=== PATIENT | male | born 1965 | race Caucasian/White ===

== ENCOUNTER → 2022-09-26 12:56 | Outpatient (BNVA) | payer OTHER, SELFPAY | PROVIDERS: PCP Internal Medicine Medical Oncology; Visit Provider Nurse Practitioner Family | DX: Z13.89 Encounter for screening for other disorder (principal) ==

== ENCOUNTER → 2022-10-16 08:43 | Outpatient (REF) | payer OTHER, SELFPAY | LOC: HO.SL 08:43 | PROVIDERS: PCP Internal Medicine Medical Oncology; Visit Provider Nurse Practitioner Family | DX: G47.33 Obstructive sleep apnea (adult) (pediatric) (principal); R40.0 Somnolence; R06.83 Snoring | CPT/HCPCS: 95806 ==

== ENCOUNTER 2025-06-14 10:47 | Outpatient (REF) | payer OTHER, SELFPAY ==
--- OUTSIDE RECORDS SUMMARY | 2024-06-02 04:00 | XMS_ITS ---
Author Organization Thiago Corley III, MD Address [address] [place] [address] Care Team Providers Care Wool Handler Name Role Phone Dr. Thiago Corley III Primary Care Provider [phone] Allergies Allergen (clinical drug ingredient) Drug/Non Drug Allergy documented on EMR Reaction Allergy Type Onset Date Status No Known Drug Allergy Unknown Drug Allergy Active REASON FOR VISIT annual Medications Medication SIG (Take, Route, Frequency, Duration) Notes Start Date End Date Status Sildenafil Citrate 100 MG 1 tablet as ne eded Orally Once a day 10/07/2023 Active oxyCODONE HCl 5 MG DIRECTED TAKE 1 T ABLET EVERY 4-6 HOURS NEEDED FOR PAIN Oral Active Social History Tobacco Use: Social History Observation Description Date Details (start date - stop date) Never Smoker NA - NA Sex Assigned At : Social History Observation Description Sex Assigned At Male Tobacco Use/Smoking Question Answer Notes Patient is a nonsmoker Additional Findings: Tobacco Non-User Aggressive non-smoker Encounters Encounter Location Date Provider Diagnosis Thiago Corley III, MD [address] [place] [address] [place] [address] 06/02/2024 Thiago Corley Plan Of Treatment Medication Medication Name Sig Start Date Stop Date Notes Sildenafil Citrate 100 MG 1 tablet as ne eded Orally Once a day 10/07/2023 oxyCODONE HCl 5 MG DIRECTED TAKE 1 T ABLET EVERY 4-6 HOURS NEEDED FOR PAIN Oral Next Appt Details Provider Name:Thiago Law Jory , 01/18/2026 11:00:00 AM, [address] [place] [address], [place] [address], [place], [address], Progress Notes * Truong PARKS SrDOB:[birth year] (59 yo M)Acc No.[id number]:06/02/2024 Progress Notes Patient: Truong ECHOLS Sr Provider: Robert Corley MD :1965 A ge:58 Y S ex:Male Date:06/02/2024 Address:[address] [place], [place] [id number] Subjective: * Chief Complaints: * 1 . Annual. * HPI: C OVID-19 Screening: Questions H ave you had any new onset fever, chills, cough, congestion, sore throat, shortness of breath, muscle aches? N o H ave you been exposed to the virus within the last 10 days? N o H ave you travelled internationally in the last 10 days? N o H ave you been exposed to COVID-19 in the past? N o * ROS: G eneral/Constitutional: pain o nly normal aches and pains. C hills d enies.?Fatigue a dmits. F ever d enies. E NT: Decreased hearing d enies. R espiratory: Cough d enies. C ardiovascular: Chest pain with exertion d enies. D yspnea on exertion?denies. S hortness of breath d enies. G astrointestinal: Constipation d enies. D ecreased appetite d enies.?Diarrhea d enies. H eartburn d enies. N ausea d enies. R ectal bleeding?denies. V omiting d enies. H ematology: bruising d enies. p etechiae d enies. S wollen glands n one have been noted. G enitourinary: Frequent urination d enies. M usculoskeletal: Muscle aches d enies. P ainful joints d enies. S ciatica d enies. W eakness d enies. S kin: Itching d enies. R britany d enies. S kin lesion(s)?denies. N eurologic: Difficulty speaking d enies. D izziness d enies.?Headache d enies. L ow back pain d enies. P sychiatric: Depressed mood d enies. 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 Mcdowell, ? 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 * Surgical History: l eft knee arthroscopy , repair incarcerated umbilical hernia, 08/2005. * Hospitalization/Major Diagno stic Procedure: D enies Past Hospitalization. * Family History: F ather: , COPD. M other: alive, Lymphoma, Diabetes, diagnosed with DM. C hildren: alive. S on(s): alive. D aughter(s): alive. 4 brother(s) , 2 sister(s) - healthy. 3 son(s) , 1 daughter(s) - healthy. . He has a significant family history of hereditary hemochromatosis with 2 brothers and one sister, testing positive for the disorder.his mother has a history of breast cancer. He has hemochromatosis trait. He is not aware of any other family history of mental illness or substance use disorder or addiction. * Social History: T obacco Use: T obacco Use/Smoking P atient is a n onsmoker A dditional Findings: Tobacco Non-User A ggressive non-smoker Cortez law works for the [employer]. Prior to that he worked at [employer] and [employer]. He has 4 children who are healthy and well. * Medications: T aking oxyCODONE HCl 5 MG Tablet DIRECTED TAKE 1 TABLET EVERY 4-6 HOURS NEEDED FOR PAIN Oral , Taking Sildenafil Citrate 100 MG Tablet 1 tablet as needed Orally Once a day , Medication List reviewed and reconciled with the patient * Allergies: N o Known Drug Allergy. Objective: * Vitals: * Examination: G eneral Examination: GENERAL APPEARANCE: p allen, well nourished, well developed, in no acute distress, calm and relaxed. HEAD: a traumatic, normocephalic. EYES: e edward, perrla, anicteric, conjugate. EARS: n ormal. NOSE: s eptum intact. ORAL CAVITY: n ormal, unremarkable. NECK/THYROID: n o jugular venous distention, no carotid bruit, thyroid normal. LYMPH NODES: n o enlarged lymph nodes,spleen normal. SKIN: n o suspicious lesions, anicteric. HEART: n o clicks, gallops, murmurs, or rubs, regular rhythm, S1, S2 normal, no s3, or vascular bruits. LUNGS: c lear to auscultation . BREASTS: no masses palpable bilaterally. ABDOMEN: b owel sounds normal, no ascites, no organomegaly, no mass. RECTAL EXAM: n ot examined. MUSCULOSKELETAL: e xtremities unremarkable, no clubbing, cyanosis or edema. PERIPHERAL PULSES: n ormal. NEUROLOGIC: a lert and oriented, cranial nerves 2-12 grossly intact, deep tendon reflexes 2+ symmetrical, motor strength normal upper and lower extremities, sensory exam intact. PSYCH: a lert, oriented. Assessment: Plan: * Treatment: * Images: * The named appointment provid er may or may not be the originator of this progress note, and it is not deemed complete until electronically signed by the appointment provider. Sign off status: Pending * Provider: Robert Corley MD Date: 08/02/2023 Generated for Edmond starks/Nadja/Katarinaitting on: 08/15/2024 12:34 PM EST History and Physical Notes * HPI (History of Present Illness) Category Sub-Category Detail Notes COVID-19 Screening Questions Have you had any new onset fever, chills, cough, congestion, sore throat, shortness of breath, muscle aches?: No Have you been exposed to the virus withi n the last 10 days?: No Have you travelled internationally in th e last 10 days?: No Have you been exposed to COVID-19 in the past?: No Examination Category Sub-Category Detail Notes General Examination GENERAL APPEARANCE: pleasant , well nourished, well developed, in no acute distress, calm and relaxed HEAD: atraumatic, normocep halic EYES: eomi, perrla, anicte patience, conjugate EARS: normal NOSE: septum intact NECK/THYROID: no jugular venous di stention, no carotid bruit, thyroid normal HEART: no clicks, gallops, murmurs, or rubs, regular rhythm, S1, S2 normal, no s3, or vascular bruits LUNGS: clear to auscultatio n ABDOMEN: bowel sounds normal, no ascites, no organomegaly, no mass NEUROLOGIC: alert and oriented, cranial nerves 2-12 grossly intact, deep tendon reflexes 2+ symmetrical, motor strength normal upper and lower extremities, sensory exam intact SKIN: no suspicious lesion s, anicteric PERIPHERAL PULSES: normal BREASTS: no masses palpable b ilaterally MUSCULOSKELETAL: extremities unremark able, no clubbing, cyanosis or edema LYMPH NODES: no enlarged lymph no flor,spleen normal RECTAL EXAM: not examined PSYCH: alert, oriented ORAL CAVITY: normal, unremarkable
--- OUTSIDE RECORDS SUMMARY | 2024-08-17 12:00 | XMS_ITS ---
Author Organization Thiago Corley III, MD Address [address] [address] Care Team Providers Care Building Construction Estimator Name Role Phone Dr. Thiago Corley III Primary Care Provider [phone] REASON FOR VISIT annual Social History Sex Assigned At : Social History Observation Description Sex Assigned At Male Encounters Encounter Location Date Provider Diagnosis Thiago Corley III, MD [address] [place] [address] [place] [address] 08/17/2024 Thiago Corley Plan Of Treatment Next Appt Details Provider Name:Thiago Corley , 01/18/2026 11:00:00 AM, [address] [place] [address] [address] [place], [address], Progress Notes * Truong PARKS SrDOB:[birth year] (59 yo M)Acc No.[id number]:08/17/2024 Progress Notes Patient: Lenora PAYNETruong ESCOBAR Sr Provider: Robert Corley MD :1965 A ge:58 Y S ex:Male Date:08/17/2024 Address:[address] [place] [address] [id number] Subjective: * Chief Complaints: * 1 . Annual. * Medical History: Objective: * Vitals: Assessment: Plan: * Treatment: * Images: * The named appointment provid er may or may not be the originator of this progress note, and it is not deemed complete until electronically signed by the appointment provider. Sign off status: Pending * Provider: Robert Corley MD Date: 0 08/17/2024 Generated for Edmond starks/Nadja/Tyesmitting on: 08/15/2024 12:32 PM EST
--- OUTSIDE RECORDS SUMMARY | 2024-10-31 12:00 | XMS_ITS ---
Author Organization Thiago Corley III, MD Address [address] [place] [address] Care Team Providers Care Heater Operator Name Role Phone Dr. Thiago Corley III Primary Care Provider Allergies Allergen (clinical drug ingredient) Drug/Non Drug [...] Date Provider Diagnosis Thiago Corley III, MD [address] [place] [place] [address] [place] [address] 10/31/2024 Thiago Corley Plan Of Treatment Medication Medication Name Sig Start Date Stop Date Notes Sildenafil Citrate 100 MG 1 tablet as ne eded Orally Once a day 10/07/2023 oxyCODONE HCl 5 MG DIRECTED TAKE 1 T ABLET EVERY 4-6 HOURS NEEDED FOR PAIN Oral Next Appt Details Provider Name:Thiago Sawyerne , 01/18/2026 11:00:00 AM, [address] [place] [address], [address], [place], [address], Progress Notes * Truong PARKS SrDOB:[birth year] (59 yo M)Acc No.[id number]:10/31/2024 Progress Notes Patient: Truong ECHOLS Sr Provider: Robert Corley MD :1965 A ge:58 Y S ex:Male Date:10/31/2024 Address:[address] [place], [place] [id number] Subjective: * Chief Complaints: * 1 . Annual. * HPI: C OVID-19 Screening: Questions H ave you had any new onset fever, chills, cough, congestion, sore throat, shortness of breath, muscle aches? N o * ROS: G eneral/Constitutional: pain [...] ggressive non-smoker Cortez law works for the [employer]. Prior to that he worked at [employer] and [employer]. He has 4 children who are healthy [...] Examination: G eneral Examination: GENERAL APPEARANCE: p leasant, well nourished, well developed, in no acute [...] * Provider: Robert Corley MD Date: 0 10/31/2024 Generated for Edmond starks/Nadja/Katarinaitting on: 08/15/2024 12:33 PM EST History and Physical Notes * HPI (History of Present Illness) Category Sub-Category Detail Notes COVID-19 Screening Questions Have you had any new onset fever, chills, cough, congestion, sore throat, shortness of breath, muscle aches?: No Examination Category Sub-Category Detail Notes General [...]
--- OUTSIDE RECORDS SUMMARY | 2025-01-17 05:45 | XMS_ITS ---
Author Organization Thiago Corley III, MD Address [address] [place] [address] Care Team Providers Care Material Requirements Worker Name Role Phone Dr. Thiago Corley III Primary Care Provider Allergies Allergen (clinical drug ingredient) Drug/Non Drug Allergy documented on EMR Reaction Allergy Type Onset Date Status No Known Drug Allergy Unknown Drug Allergy Active No Known Food Allergy Unknown Drug Allergy Active REASON FOR VISIT Annual Exam Medications Medication SIG (Take, Route, Frequency, Duration) Notes Start Date End Date Status Sildenafil Citrate 100 MG 1 tablet as ne eded Orally Once a day 10/07/2023 Active Sildenafil Citrate 100 MG 1 tablet Orall y Once a day for 100 days 01/17/2025 05/01/2028 Active Social History Tobacco Use: Social History Observation Description Date Details (start date - stop date) Never Smoker NA - NA Sex Assigned At : Social History Observation Description Sex Assigned At Male Tobacco Control (Standard) Question Answer Notes Tobacco use: Nonsmoker Additional Findings: Tobacco non-user Aggressive nonsmoker AUDIT-C (Standard) Question Answer Notes Did you have a drink contain ing alcohol in the past year? Yes How often did you have six o r more drinks on one occasion in the past year? 2 to 4 times a month (2 points) How many drinks did you have on a typical day when you were drinking in the past year? 1 or 2 drinks (0 point) How often did you have a dri nk containing alcohol in the past year? Never (0 point) Points 2 Interpretation Negative Problems Problem Type SNOMED Code ICD Code Onset Dates Problem Status W/U Status Risk Notes Problem [id number] Overweight (E66.3) Active confirmed His body mass index is 26. We discussed his diet and nutrition. We made a plan to lose weight at a rate of one half of a pound per week. Vital Signs Temperature 98.4 degrees Fahrenheit 01/18/20 25 Blood pressure systolic 133 mm Hg 01/18/20 25 Blood pressure diastolic 80 mm Hg 025 Heart Rate 78 /min 01/17/2025 Height 6 ft 1 in in 01/17/2025 Weight 202 lbs 01/17/2025 BMI 26.65 kg/m2 01/17/2025 Encounters Encounter Location Date Provider Diagnosis Thiago Corley III, MD [address] [place] [address] [place] [address] 01/17/2025 Thiago Corley Hyperlipidemia E78.5 ; Hypersplenism D73.1 ; Thrombocytopenia D69.6 ; Erectile dysfunction, unspecified erectile dysfunction type N52.9 ; Anxiety disorder, unspecified type F41.9 ; Alcoholic liver disease K70.9 and Overweight E66.3 Assessments Encounter Date Diagnosis (ICD Code) Assessment Notes Treat ment Notes Treatment Clinical Notes 01/17/2025 Hyperlipidemia (ICD- 10 - E78.5) Comprehensive blood work including a fasting lipid profile has been ordered. 01/17/2025 Hypersplenism (ICD-1 0 - D73.1) Comprehensive blood work was ordered. The liver and spleen are not palpable today. He has had no bleeding from the thrombocytopenia. 01/17/2025 Thrombocytopenia (ICD-10 - D69.6) He has had no bleeding. He is known to hypersplenism. Comprehensive blood work with a CBC is pending. 01/17/2025 Erectile dysfunction , unspecified erectile dysfunction type (ICD-10 - N52.9) This problem has been successfully remedied with medication. 01/17/2025 Anxiety disorder, unspecified type (ICD-10 - F41.9) He is doing well currently working full-time in completing all activities of daily living without drinking alcohol. 01/17/2025 Alcoholic liver disease (ICD-10 - K70.9) He continues in recovery. The TIPS catheter is patent and functioning on the recent abdominal ultrasound. 01/17/2025 Overweight (ICD-10 - E66.3) His body mass index is 26. We discussed his diet and nutrition. We made a plan to lose weight at a rate of one half of a pound per week. Plan Of Treatment Medication Medication Name Sig Start Date Stop Date Notes Sildenafil Citrate 100 MG 1 tablet as ne eded Orally Once a day 10/07/2023 Sildenafil Citrate 100 MG 1 tablet Orall y Once a day for 100 days 01/17/2025 05/01/2028 Pending Test Test Name Order Date PROFILE, FASTING (COMPREHENSIVE METABOLI C) 01/17/2025 PSA, TOTAL 01/17/2025 CBC w DIFF 01/17/2025 Lipid Panel 01/17/2025 Next Appt Details Follow Up: 1 year annual exa m, Reason: annual exam review labs Provider Name:Thiago Corley , 01/18/2026 11:00:00 AM, [address] [place] [address], [address], Progress Notes * Truong PARKS SrDOB:[birth year] (59 yo M)Acc No.[id number]:01/17/2025 Progress Notes Patient: Lenora WALLS Truong Sr Provider: Robert Corley MD :1965 A ge:59 Y S ex:Male Date:01/17/2025 Address:[address] [place], [place] [id number] Subjective: * Chief Complaints: * A nnual Exam * HPI: D epression Screening: He returns to the office at the age of 59, for his annual physical examination. He is working at the same place in the department of [employer] in [place], [place]. Since his last visit he has had surgery on his right shoulder, but is still not able to lift it through a normal range of motion. He injured his shoulder about a year ago and is improved but not perfect. His examination today was unremarkable. His older blood work was reviewed with him.? Comprehensive blood work was ordered to be done within the next 2 weeks.He is up-to-date with colonoscopy.He denies any shortness of breath or chest pain. He is working 40 hours a week at his main job and has a side job as well. He is sleeping well and his appetite is good. PHQ-9 L ittle interest or pleasure in doing things?Not at all F eeling down, depressed, or hopeless N ot at all T rouble falling or staying asleep, or sleeping too much N ot at all F eeling tired or having little energy N ot at all P oor appetite or overeating N ot at all F eeling bad about yourself or that you are a failure, or have let yourself or your family down N ot at all T rouble concentrating on things, such as reading the newspaper or watching television N ot at all M oving or speaking so slowly that other people could have noticed; or the opposite, being so fidgety or restless that you have been moving around a lot more than usual N ot at all T houghts that you would be better off or of hurting yourself in some way N ot at all T otal Score 0 C OVID-19 Screening: Questions H ave you had any new onset fever, chills, cough, congestion, sore throat, shortness of breath, muscle aches? N o S EZEQUIEL Questions: SDOH Questions I n the past year have you been worried about losing your housing? N o I n the past year have you or any family members you live with been unable to get any of the following when it was really needed? Check all that apply: N one * ROS: G eneral/Constitutional: pain R ight shoulder with elevation or weightbearing, otherwise only normal aches and pains. C hills d enies. F atigue a dmits. F ever d enies. E [...] Muscle aches d enies. P ainful joints R ight shoulder with weightbearing or elevation. S ciatica d enies. W eakness d enies. S kin: Itching d enies. R britany d enies. S kin lesion(s)?denies. N eurologic: Difficulty speaking d enies. D izziness d enies.?Headache d enies. L ow back pain d enies. P sychiatric: Depressed mood d enies. * Medical History: * Surgical History: l eft knee arthroscopy repair incarcerated umbilical hernia, [facility] * Hospitalization/Major Diagno stic Procedure: D enies Past Hospitalization * Family History: F ather: , COPD. [...] Social History: T obacco Use: T obacco Control (Standard) T obacco use: N onsmoker A dditional Findings: Tobacco non-user A ggressive nonsmoker D rugs/Alcohol: D rugs H ave you used drugs other than those for medical reasons in the past 12 months? N o D rug/Alcohol: A INGE-C (Standard) D id you have a drink containing alcohol in the past year? Y es H ow often did you have six or more drinks on one occasion in the past year? 2 to 4 times a month (2 points) H ow many drinks did you have on a typical day when you were drinking in the past year? 1 or 2 drinks (0 point) H ow often did you have a drink containing alcohol in the past year? N ever (0 point) P oints 2 I nterpretation N egative H thanh works for the [employer]. Prior to that he worked at [employer] and [employer]. He has 4 children who are healthy and well. * Medications: T akingSildenafil Citrate 100 MG Tablet 1 tablet as needed Orally Once a day Medication List reviewed and reconciled with the patientTaking Sildenafil Citrate 100 MG Tablet 1 tablet as needed Orally Once a day Medication List reviewed and reconciled with the patient * Allergies: N o Known Drug AllergyNo Known Food Allergyno[Allergies Verified] Objective: * Vitals: H t: 6 ft 1 in, Wt: 202, BMI:26.65, BP: 133/80, HR: 78, Temp: 98.4, Wt-k.63. * Examination: G eneral Examination: GENERAL APPEARANCE: p leasant, well nourished, well developed, in no acute distress, calm and relaxed, overweight, man. HEAD: a traumatic, normocephalic. EYES: e edward, [...] sounds normal, no ascites, no organomegaly, no mass, overweight. RECTAL EXAM: , normal tone, no external hemorrhoids, no masses palpable, no melena, no red blood, prostate normal, stool guaiac negative. MUSCULOSKELETAL: e xtremities unremarkable, no clubbing, cyanosis or edema. PERIPHERAL PULSES: n ormal. NEUROLOGIC: a lert and oriented, cranial nerves 2-12 grossly intact, deep tendon reflexes 2+ symmetrical, motor strength normal upper and lower extremities, sensory exam intact. PSYCH: a lert, oriented. Assessment: * Assessment: 1. H ypersplenism - D73.1 (Primary) N otes :Comprehensive blood work was ordered. The liver and spleen are not palpable today. He has had no bleeding from the thrombocytopenia. 2 . H yperlipidemia - E78.5 N otes :Comprehensive blood work including a fasting lipid profile has been ordered. 3 . T hrombocytopenia - D69.6 N otes :He has had no bleeding. H e is known to hypersplenism. Comprehensive blood work with a CBC is pending. 4 . E rectile dysfunction, unspecified erectile dysfunction type - N52.9 ? N otes :This problem has been successfully remedied with medication. 5 . A nxiety disorder, unspecified type - F41.9 N otes :He is doing well currently working full-time in completing all activities of daily living without drinking alcohol. 6 . A lcoholic liver disease - K70.9 N otes :He continues in recovery. The TIPS catheter is patent and functioning on the recent abdominal ultrasound. 7 . O verweight - E66.3 N otes :His body mass index is 26. We discussed his diet and nutrition. We made a plan to lose weight at a rate of one half of a pound per week. Plan: * Treatment: 2. H yperlipidemia L AB: PROFILE, FASTING (COMPREHENSIVE METABOLIC) L AB: PSA, TOTAL L AB: CBC w DIFF L AB: Lipid Panel 3. T hrombocytopenia L AB: PROFILE, FASTING (COMPREHENSIVE METABOLIC) L AB: PSA, TOTAL L AB: CBC w DIFF L AB: Lipid Panel 4. E rectile dysfunction, unspecified erectile dysfunction type L AB: PROFILE, FASTING (COMPREHENSIVE METABOLIC) L AB: PSA, TOTAL L AB: CBC w DIFF L AB: Lipid Panel 5. O thers Start Sildenafil Citrate Tablet, 100 MG, 1 tablet, Orally, Once a day, 100 days, 100 Tablet, Refills 11. * Procedure Codes: * Preventive Medicine: Counseling: C are goal follow-up plan: Counseling for abnormal BMI given Y es Above Normal BMI Follow-up D ietary management education, guidance, and counseling, Dietary needs education, Exercise promotion: strength training, Exercise promotion: stretching, Feeding regime, Giving encouragement to exercise, Lifestyle education regarding diet, Nutrition / feeding management, Nutrition therapy, Prescribed activity/exercise education, Prescribed diet education, Prescribed dietary intake, Special diet education, Weight monitoring , Intervention, Order not done: Medical or Other reason not done * Follow Up: 1 year annual exam (Reason: annual exam review labs) * Images: * Sign off status: Completed true * Provider: Robert Corley MD Date: 0 01/17/2025 Generated for Edmond starks/Nadja/eTransmitting on: 08/15/2024 12:32 PM EST History and Physical Notes * HPI (History of Present Illness) Category Sub-Category Detail Notes Depression Screening PHQ-9 Little inte rest or pleasure in doing things: Not at all Feeling down, depressed, or hopeless: No t at all Trouble falling or staying asleep, or sl eeping too much: Not at all Feeling tired or having little energy: N ot at all Poor appetite or overeating: Not at all Feeling bad about yourself o r that you are a failure, or have let yourself or your family down: Not at all Trouble concentrating on thi ngs, such as reading the newspaper or watching television: Not at all Moving or speaking so slowly that other people could have noticed; or the opposite, being so fidgety or restless that you have been moving around a lot more than usual: Not at all Thoughts that you would be b tony off or of hurting yourself in some way: Not at all Total Score: 0 COVID-19 Screening Questions Have you had any new onset fever, chills, cough, congestion, sore throat, shortness of breath, muscle aches?: No SDOH Questions SDOH Questions In the past year have you been worried about losing your housing?: No In the past year have you or any family members you live with been unable to get any of the following when it was really needed? Check all that apply:: None Examination Category Sub-Category Detail Notes General Examination GENERAL APPEARANCE: pleasant , well nourished, well developed, in no acute distress, calm and relaxed, overweight, man HEAD: atraumatic, normocep halic EYES: eomi, perrla, anicte patience, conjugate EARS: normal NOSE: septum intact NECK/THYROID: no jugular venous di stention, no carotid bruit, thyroid normal HEART: no clicks, gallops, murmurs, or rubs, regular rhythm, S1, S2 normal, no s3, or vascular bruits LUNGS: clear to auscultatio n ABDOMEN: bowel sounds normal, no ascites, no organomegaly, no mass, overweight NEUROLOGIC: alert and oriented, cranial nerves 2-12 grossly intact, deep tendon reflexes 2+ symmetrical, motor strength normal upper and lower extremities, sensory exam intact SKIN: no suspicious lesion s, anicteric PERIPHERAL PULSES: normal BREASTS: no masses palpable b ilaterally MUSCULOSKELETAL: extremities unremark able, no clubbing, cyanosis or edema LYMPH NODES: no enlarged lymph no flor,spleen normal RECTAL EXAM: , normal tone, no ex ternal hemorrhoids, no masses palpable, no melena, no red blood, prostate normal, stool guaiac negative PSYCH: alert, oriented ORAL CAVITY: normal, unremarkable
--- OUTSIDE RECORDS SUMMARY | 2025-05-31 10:06 | XMS_ITS ---
Author Organization Thiago Corley III, MD Address [address] [place] [address] Care Team Providers Care Trademark Attorney Name Role Phone Dr. Thiago Corley III Primary Care Provider REASON FOR VISIT Appt Request Social History Sex Assigned At : Social History Observation Description Sex Assigned At Male Encounters Encounter Location Date Provider Diagnosis Thiago Corley III, MD [address] [place] [address] [place] [address] 05/31/2025 Thiago Corley Plan Of Treatment Next Appt Details Provider Name:Thiago Corley , 01/18/2026 11:00:00 AM, [address] [place] [address] [place], [address], Progress Notes * Truong PARKS SrDOB:[birth year] (59 yo M)Acc No.[id number]:05/31/2025 Patient: Lenora Truong WALLS Sr :1965 A ge:59 Y S ex:Male Address:[address] [place] [address] * * Date:
--- OUTSIDE RECORDS SUMMARY | 2025-06-14 05:00 | XMS_ITS ---
Author Organization Thiago Corley III, MD Address [address] [place] [address] Care Team Providers Care Yolk Spray Drier Name Role Phone Dr. Thiago Corley III Primary Care Provider Allergies Allergen (clinical drug ingredient) Drug/Non Drug Allergy documented on EMR Reaction Allergy Type Onset Date Status No Known Drug Allergy Unknown Drug Allergy Active No Known Food Allergy Unknown Drug Allergy Active Reason For Referral Reason dysphagia with 14 lb weight loss evaluate and treatment Diagnosis 1 Weight loss (R63.4) Diagnosis 2 Dysphagia, unspecifi ed type (R13.10) Referral Organization Thiago Corley III, MD Referring Provider First Name Thiago Referring Provider Last Name Jory Referring Provider Speciality Internal M edicine [facility] Address [address], [id number], Referred Provider Specialty Gastroentero logy Referral Priority Routine REASON FOR VISIT Difficulty Swallowing x 2 weeks Medications Medication SIG (Take, Route, Frequency, Duration) Notes Start Date End Date Status Pantoprazole Sodium 40 MG 1 tablet 1/2 t o 1 hour before morning meal Oral Once a day Active Sildenafil Citrate 100 MG 1 tablet Orally Once a day 01/17/2025 Active Immunizations Vaccine Route Administration Date Status Comme nts Influenza Vaccine Afluria IM Intramuscular 06/14/2025 Admi nistered Social History Tobacco Use: Social History Observation Description Date Details (start date - stop date) Never Smoker NA - NA Sex Assigned At : Social History Observation Description Sex Assigned At Male Tobacco Control (Standard) Question Answer Notes Tobacco use: Nonsmoker Additional Findings: Tobacco non-user Aggressive nonsmoker Vital Signs Temperature 98.2 degrees Fahrenheit 06/14/20 25 Blood pressure systolic 136 mm Hg 06/14/20 25 Blood pressure diastolic 83 mm Hg 025 Heart Rate 67 /min 06/14/2025 Height 6 ft 1 in in 06/14/2025 Weight 188 lbs 06/14/2025 BMI 24.8 kg/m2 06/14/2025 Encounters Encounter Location Date Provider Diagnosis Thiago Corley III, MD [address] [place] [address] [place] [address] 06/14/2025 Thiago Corley Dysphagia, unspecifi ed type R13.10 ; Weight loss R63.4 ; Thrombocytopenia D69.6 ; Unspecified jaundice R17 ; Hepatic cirrhosis K74.60 and Encounter for immunization Z23 Assessments Encounter Date Diagnosis (ICD Code) Assessment Notes Treat ment Notes Treatment Clinical Notes 06/14/2025 Dysphagia, unspecifi ed type (ICD-10 - R13.10) 06/14/2025 Weight loss (ICD-10 - R63.4) 06/14/2025 Thrombocytopenia (ICD-10 - D69.6) 06/14/2025 Unspecified jaundice (ICD-10 - R17) 06/14/2025 Hepatic cirrhosis (ICD-10 - K74.60) 06/14/2025 Encounter for immunization (ICD-10 - Z23) Plan Of Treatment Medication Medication Name Sig Start Date Stop Date Notes Pantoprazole Sodium 40 MG 1 tablet 1/2 t o 1 hour before morning meal Oral Once a day Sildenafil Citrate 100 MG 1 tablet Orally Once a day 01/17 Pending Test Test Name Order Date PROFILE, FASTING (COMPREHENSIVE METABOLI C) 06/14/2025 PSA, TOTAL 06/14/2025 CBC w DIFF 06/14/2025 XR GI SERIES 06/14/2025 Prealbumin 06/14/2025 Lipid Panel 06/14/2025 Referrals Referral Date Details 06/14/2025 06/14/2025, dysphagi a with 14 lb weight loss evaluate and treatment, [facility], [address] [place] [address], [place], [place], [phone], Next Appt Details Follow Up: after testing and GI consult, Reason: OV review labs and UGI Provider Name:Thiago Corley , 01/18/2026 11:00:00 AM, [address] [place] [address] , [facility] [address], [place], [address], Progress Notes * CHARLY Truong SrDOB:[birth year] (59 yo M)Acc No.[id number]:06/14/2025 Progress Notes Patient: Truong ECHOLS Sr Provider: Robert Corley MD :1965 A ge:59 Y S ex:Male Date:06/14/2025 Address:[address] [place], [place] [id number] Subjective: * Chief Complaints: * 1 . Difficulty Swallowing x 2 weeks. * HPI: C OVID-19 Screenin weeks ag burp gas, then chest hurt, courghe up clear phlegm, thgen week latger, urg care gave him pantoprazole ,. Questions H ave you had any new onset fever, chills, cough, congestion, sore throat, shortness of breath, muscle aches? N o * ROS: G eneral/Constitutional: pain o nly normal aches and pains. C thicket d enies.?Fatigue a dmits. F ever d [...] knee arthroscopy , repair incarcerated umbilical hernia, 08/2005, Right shoulder surgery- [facility] 2023. * Hospitalization/Major Diagno stic Procedure: D enies [...] dditional Findings: Tobacco non-user A ggressive nonsmoker Cortez law works for the [employer]. Prior to that he worked at [employer] and [employer]. He has 4 children who are healthy and well. * Medications: T bubba Sildenafil Citrate 100 MG Tablet 1 tablet Orally Once a day , stop date 05/01/2028, Taking Pantoprazole Sodium 40 MG Tablet Delayed Release 1 tablet 1/2 to 1 hour before morning meal Oral Once a day , Discontinued Sildenafil Citrate 100 MG Tablet 1 tablet as needed Orally Once a day , Medication List reviewed and reconciled with the patient * Allergies: N o Known Drug Allergy, No Known Food Allergy. Objective: * Vitals: H t: 6 ft 1 in, Wt: 188, BMI:24.8, BP: 136/83, HR: 67, Temp: 98.2, Wt-k.28. * Examination: G eneral Examination: GENERAL APPEARANCE: [...] a lert, oriented. Assessment: * Assessment: 1. E ncounter for immunization - Z23 (Primary) 2 . D ysphagia, unspecified type - R13.10 3 . W eight loss - R63.4 4 . T hrombocytopenia - D69.6 5 . U nspecified jaundice - R17 6 . H epatic cirrhosis - K74.60 Plan: * Treatment: 2. W eight loss L AB: PROFILE, FASTING (COMPREHENSIVE METABOLIC) L AB: PSA, TOTAL L AB: CBC w DIFF L AB: Prealbumin L AB: Lipid Panel I maging: XR GI SERIES Referral To:[facility] Reason:dysphagia with 14 lb weight loss evaluate and treatment 3. T hrombocytopenia L AB: PROFILE, FASTING (COMPREHENSIVE METABOLIC) L AB: PSA, TOTAL L AB: CBC w DIFF L AB: Prealbumin L AB: Lipid Panel 4. U nspecified jaundice L AB: PROFILE, FASTING (COMPREHENSIVE METABOLIC) L AB: PSA, TOTAL L AB: CBC w DIFF L AB: Prealbumin L AB: Lipid Panel 5. H epatic cirrhosis L AB: PROFILE, FASTING (COMPREHENSIVE METABOLIC) L AB: PSA, TOTAL L AB: CBC w DIFF L AB: Prealbumin L AB: Lipid Panel 6. O thers Continue Sildenafil Citrate Tablet, 100 MG, 1 tablet, Orally, Once a day; C ontinue Pantoprazole Sodium Tablet Delayed Release, 40 MG, 1 tablet 1/2 to 1 hour before morning meal, Oral, Once a day. * Immunizations: Influenza Vaccine Afluria : 0.5 mL (Dose No:1) (Route: Intramuscular) given by Janelle Sarabia on Right Arm (Encounter for immunization) ???Immunization record has been reviewed and updated. * Procedure Codes: 9 0674 CCIIV4 VAC NO PRSV 0.5 [place], [address] FLU VACC 4 SILVIO 3 YRS PLUS IM * Follow Up: a fter testing and GI consult (Reason: OV review labs and UGI) * Images: * The named appointment provid er may or may not be the originator of this progress note, and it is not deemed complete until electronically signed by the appointment provider. Sign off status: Pending * Provider: Robert Corley MD Date: 08/15/2024 Generated for Edmond starks/Nadja/Flo on: 08/15/2024 12:32 PM EST History and [...] PSYCH: alert, oriented ORAL CAVITY: normal, unremarkable Consultation Request Notes Referral Date Referring Provider Referred Provider Not gerry 06/14/2025 Thiago Corley [facility], Gastroenterology dysphagia with 14 lb weight loss evaluate and treatment
--- OUTSIDE RECORDS SUMMARY | 2025-06-14 12:32 | XMS_ITS | Encounter Summary ---
Author Organization [facility] Address [email or web address] [facility] [address] [place] [address] Phone Care Team Providers Care Traffic Routing Engineer Name Role Phone Thiago Corley MD Primary Care Provider [phone]- [phone] Thiago Corley MD Primary Care Provider [phone]- [phone] Reason for Referral * Molecular Pathology - Closed Specialty Diagnoses / Procedures Referred By Mackenzie lawrence Referred To Contact Diagnoses Hyperlipidemia, unspecified hyperlipidemia type Routine medical exam Hypersplenism Impotence Biliary cirrhosis Procedures Hemochromatosis Gene Analysis Thiago Corley MD Phone: tel: fax: Referral ID Status Reason Start Date Expiration Date Visits Re quested Visits Authorized [id number] Closed 08/05/2018 08/05/2019 1 1 Encounter Details Date Type Department Care Team (Latest Contact Info) Description 08/05/2018 Transcribe Orders [facility] [address] [place] [address] Thiago Corley MD [address] [place] [address] [place] [id number] Hyperlipidemia, unspecified hyperlipidemia type (Primary Dx); Routine medical exam; Hypersplenism; Impotence; Biliary cirrhosis Social History Tobacco Use Types Packs/Day Years Used Date Smoking Tobacco: Never Assessed Sex and Gender Information Value Date Recorded Sex Assigned at Not on file Legal Sex Male 11:13 AM EDT Gender Identity Not on file Sexual Orientation Not on file documented as of this encounter Plan of Treatment Not on file documented as of this encounter Results * Hemochromatosis Gene Analysis (08/05/2018 7:36 AM EST) HFE Gene analysis SEE NOTE 9 10:53 PM [facility] DPT OF LAB MED AND PAT+ Comment: (NOTE) Test Result Flag Unit RefValue Hemochromatosis HFE Gene Analysis, B Result Summary COMPLEX (SEE RESULT AND INTERPRETATION) Result SEE NOTE C282Y: One copy of the C282Y mutation was identified. H63D: Not detected. S65C: Not detected. Interpretation SEE NOTE This result indicates that this individual is at minimum a carrier of hereditary hemochromatosis (HH). The diagnosis of HH cannot be excluded because approximately 3 to 5% of patients with HH in the [place] population carry this allele. For other ethnicities, the frequency of HH patients with this allele may differ. This assay does not rule out the presence of other disease-causing mutations in the HFE gene or in other genes associated with hemochromatosis. Genotyping results should be interpreted in the context of clinical findings, family history, and other laboratory testing (e.g. serum transferrin-iron saturation and serum ferritin). A genetic consultation may be of benefit. ADDITIONAL INFORMATION An online research opportunity called menuvox ([email or web address]), a project of [employer], is available for the recipient of this genetic test. This patient registry collects de-identified genetic and health information to advance the knowledge of genetic variants. [facility] is a collaborator of [employer]. This may not be applicable for all tests. Test results should be interpreted in the context of clinical findings, family history, and other laboratory data. Misinterpretation of results may occur if the information provided is inaccurate or incomplete. Rare polymorphisms exist that could lead to false-negative or false-positive results. If results obtained do not match the clinical findings, additional testing should be considered. Bone Marrow transplants from allogenic donors will interfere with testing. Call [facility] for instructions for testing patients who have received a bone marrow transplant. Multiple in-silico evaluation tools may have been used to assist in the interpretation of these results. Of note, the sensitivity and specificity of these tools for the determination of pathogenicity is currently unvalidated. This test was developed and its performance characteristics determined by [facility] in a manner consistent with CLIA requirements. This test has not been cleared or approved by the U.S. Food and Drug Administration. Specimen WB Whole Blood Method SEE NOTE A multiplex PCR based assay utilizing the [employer] Array platform was used to test for the following three mutations in the HFE gene; C282Y, H63D, and S65C. Because of the minimal effect on iron metabolism associated with the S65C mutation, it is only reported when it is found with the C282Y mutation (i.e. if the patient has the C282Y/S65C genotype). Released By Jacinta Schuler M.D. Blood 08/05/2018 7:36 AM EST 08/05/2018 7:49 AM EST us Thiago Corley MD LAB BLOOD BKR ORDERABLES F inal Result [facility] DPT OF LAB MED AND PAT+ [address] [place] [address] * (ABNORMAL) Immunoglobulins IgG, IgA, IgM (08/05/2018 7:36 AM EST) IMMUNOGLOBULIN G 1,362 700 - 1,600 mg/dL [facility] IgA 580(H) 70 - 400 mg/dL [facility] IMMUNOGLOBULIN M 144 40 - 230 mg/dL [facility] Blood 08/05/2018 7:36 AM EST 08/05/2018 7:50 AM EST us Thiaog Corley MD LAB BLOOD BKR ORDERABLES F inal Result [facility] [address] [place] [address] * Anti-Mitochondrial Antibody (AMA) (08/05/2018 7:36 AM EST) MITOCHONDRIAL AB M2 <0.1 <0.1 (Negative) U [facility] LAB MED/PATH [facility] Blood 08/05/2018 7:36 AM EST 08/05/2018 7:49 AM EST us Thiago Corley MD LAB BLOOD ORDERABLES Final Result Performing Organization Address [facility] Co de Phone Number [facility] LAB MED/PATH [address] [place] [address] * Ujmpn-[id number] phenotyping (08/05/2018 7:36 AM EST) ALPHA 1 ANTITRYPSIN 139 100 - 190 mg/dL [facility] LAB MED/PATH [facility] A1A PHENOTYPE MM bands [facility] LAB MED/PATH [facility] Comment: (NOTE) A single M isoform is detected. In the context of a normal [id number] concentration, this is consistent with an MM phenotype. Blood 08/05/2018 7:36 AM EST 08/05/2018 7:49 AM EST us Thiago Corley MD LAB BLOOD ORDERABLES Final Result Performing Organization Address [facility] Phone Number [facility] LAB MED/PATH [address] [place] [address] * (ABNORMAL) Antinuclear antibody (DEVANG) (08/05/2018 7:36 AM EST) DEVANG SCREEN ON HEP 2 Positive(A ) Negative [facility] Comment:An DEVANG Titer has bee n reflexed. The results will follow. Blood 08/05/2018 7:36 AM EST 08/05/2018 7:50 AM EST us Thiago Corley MD LAB BLOOD BKR ORDERABLES F inal Result Performing Organization Address [facility] Co de Phone Number [address] [address] * Zinc (08/05/2018 7:36 AM EST) ZINC 0.78 0.66 - 1.10 mcg/mL [facility] LAB MED/PATH [facility] Comment: (NOTE) ADDITIONAL INFORMATION This test was developed and its performance characteristics determined by [facility] in a manner consistent with CLIA requirements. This test has not been cleared or approved by the U.S. Food and Drug Administration. Blood 08/05/2018 7:36 AM EST 08/05/2018 7:49 AM EST us Thiago Corley MD LAB BLOOD ORDERABLES Final Result Performing Organization Address [facility] de Phone Number [facility] LAB MED/PATH [address] [place] [address] * TSH (08/05/2018 7:36 AM EST) TSH 1.72 0.27 - 4.20 uIU/mL [facility] Blood 08/05/2018 7:36 AM EST 08/05/2018 7:50 AM EST us Thiago Corley MD LAB BLOOD BKR ORDERABLES F inal Result Performing Organization Address City/[facility] Co de Phone Number [address] [address] * Vitamin B12 (08/05/2018 7:36 AM EST) VITAMIN B12 1,020 232 - 1,245 pg/mL [facility] Blood 08/05/2018 7:36 AM EST 08/05/2018 7:50 AM EST Thiago Corley MD LAB BLOOD BKR ORDERABLES F inal Result Performing Organization Address [facility]/ZIP Co de Phone Number [facility] [address] [place] [address] * Vitamin B1 (thiamine) (08/05/2018 7:36 AM EST) VITAMIN B1 153 70 - 180 nmol/L [facility] LAB MED/PATH [facility] Comment: (NOTE) ADDITIONAL INFORMATION This test was developed and its performance characteristics determined by [facility] in a manner consistent with CLIA requirements. This test has not been cleared or approved by the U.S. Food and Drug Administration. Blood 08/05/2018 7:36 AM EST 08/05/2018 7:49 AM EST Thiago Corley MD LAB BLOOD ORDERABLES Final Result Performing Organization Address [facility] de Phone Number [facility] LAB MED/PATH [address] [place] [address] * Smooth Muscle Antibody (08/05/2018 7:36 AM EST) Pathologist [facility] ANTI-SMOOTH MUSCLE AB Negative Negative [facility] LAB MED/PATH [facility] Comment: (NOTE) ADDITIONAL INFORMATION This test was developed and its performance characteristics determined by [facility] in a manner consistent with CLIA requirements. This test has not been cleared or approved by the U.S. Food and Drug Administration. Blood 08/05/2018 7:36 AM EST 08/05/2018 7:49 AM EST Thiago Corley MD LAB BLOOD ORDERABLES Final Result Performing Organization Address [facility] de Phone Number [facility] LAB MED/PATH [address] [place] [address] * (ABNORMAL) Iron and iron binding capacity (08/05/2018 7:36 AM EST) IRON 175(H) 45 - 160 ug/dL [facility] IRON BINDING CAPACITY 205(L) 228 - 428 ug/dL [facility] TRANSFERRIN SATURAT. 85(H) 20 - 55 % [facility] Blood 08/05/2018 7:36 AM EST 08/05/2018 7:50 AM EST us Thiago Corley MD LAB BLOOD BKR ORDERABLES F inal Result Performing Organization Address [facility] Co de Phone Number [address] [address] * (ABNORMAL) PT-INR (08/05/2018 7:36 AM EST) Pathologist [facility] PT 15.2(H) 10.2 - 12.9 sec [facility] INR 1.4(H) 0.9 - 1.1 [facility] Comment:Therapeutic range fo r oral Vitamin K antagonists: 2.0-3.5 Blood 08/05/2018 7:36 AM EST 08/05/2018 7:50 AM EST us Thiago Corley MD LAB BLOOD BKR ORDERABLES F inal Result Performing Organization Address [facility] Co de Phone Number [address] [address] * Hepatitis C antibody, qualitative (08/05/2018 7:36 AM EST) Pathologist [facility] HCV Negative Negative [facility] Comment: This is a screening test and should be confirmed with molecular testing Blood 08/05/2018 7:36 AM EST 08/05/2018 7:50 AM EST us Thiago Corley MD LAB BLOOD BKR ORDERABLES F inal Result Performing Organization Address [facility] Co de Phone Number [address] [address] * Hepatitis B surface antigen (08/05/2018 7:36 AM EST) HBV SURFACE ANTIGEN Negative Negative [facility] Blood 08/05/2018 7:36 AM EST 08/05/2018 7:50 AM EST us Thiago Corley MD LAB BLOOD BKR ORDERABLES F inal Result Performing Organization Address City/[facility]/ZIP Co de Phone Number [facility] [address] [place] [address] * Hepatitis B core antibody, IgM (08/05/2018 7:36 AM EST) HBC IGM AB, S Negative Negative [facility] LAB MED/PATH [facility] Blood 08/05/2018 7:36 AM EST 08/05/2018 7:49 AM EST us Thiago Corley MD LAB BLOOD BKR ORDERABLES F inal Result Performing Organization Address [facility]/ZIP Co de Phone Number [facility] LAB MED/PATH [address] [place] [address] * (ABNORMAL) Ceruloplasmin (08/05/2018 7:36 AM EST) CERULOPLASMIN,S 17.3(L) 19.0 - 31.0 mg/dL [facility] DPT OF LAB MED AND PAT+ Comment: (NOTE) A low concentration of ceruloplasmin in serum can be found in patients with Pedro disease, copper deficiency, Menkes disease, and hereditary aceruloplasminemia. Conditions with severe protein loss or liver failure are also associated with low ceruloplasmin levels. Furthermore, reduced ceruloplasmin concentrations can be observed in carriers for Pedro disease. If the clinical suspicion for Pedro disease is high in this patient, consider further testing including but not limited to urine copper, serum copper, and Pedro disease full gene analysis. Please contact the laboratory at or the on-line test catalog at [employer] for more information. Blood 08/05/2018 7:36 AM EST 08/05/2018 7:49 AM EST us Thiago Corley MD LAB BLOOD ORDERABLES Final Result [facility] DPT OF LAB MED AND PAT+ [address] [place] [address] * Tissue transglutaminase IgA (08/05/2018 7:36 AM EST) TTG IGA ANTIBODY <1.2 <4.0 (Negative) U/mL [facility] DPT OF LAB MED AND PAT+ Blood 08/05/2018 7:36 AM EST 08/05/2018 7:49 AM EST us Thiago Corley MD LAB BLOOD BKR ORDERABLES F inal Result Performing Organization Address [facility] Co de Phone Number [facility] DPT OF LAB MED AND PAT+ [address] [place] [address] * (ABNORMAL) CBC and differential (08/05/2018 7:36 AM EST) WBC 2.59(L) 3.40 - 11.20 K/uL [facility] RBC 4.61 4.50 - 5.50 M/uL [facility] HGB 14.9 13.0 - 17.0 g/dL [facility] HCT 41.8 40.0 - 51.0 % [facility] PLT 61(L) 130 - 400 K/uL [facility] Comment:Consistent with prev ious results MCV 90.7 79.0 - 98.0 fL [facility] MCH 32.3 27.0 - 34.8 pg [facility] MCHC 35.6 31.5 - 36.0 g/dL [facility] RDW 13.3 10.8 - 14.6 % [facility] MPV 10.9 9.4 - 12.4 fl [facility] NRBC 0.00 0.00 /100 WBCs [facility] ABSOLUTE NRBC 0.00 0.00 K/uL [facility] DIFF METHOD Auto [facility] NEUTS 57.9 45.30 - 77.70 % [facility] LYMPHS 25.5 12.30 - 39.70 % [facility] MONOS 12.0 4.10 - 12.80 % [facility] EOS 2.7 0 - 7.2 % [facility] BASOS 1.5 0 - 2.80 % [facility] Granulocytes, immature (%) 0.4 0.0 - 0.9 % [facility] ABSOLUTE NEUTS 1.50 1.40 - 7.70 K/uL [facility] ABSOLUTE LYMPHS 0.66 0.60 - 3.20 K/uL [facility] ABSOLUTE MONOS 0.31 0.11 - 0.59 K/uL [facility] ABSOLUTE EOS 0.07 0.01 - 0.50 K/uL [facility] ABSOLUTE BASOS 0.04 0.00 - 0.08 K/uL [facility] Granulocytes, immature 0.01 0.00 - 0.05 K/uL [facility] Blood 08/05/2018 7:36 AM EST 08/05/2018 7:50 AM EST Thiago Corley MD LAB BLOOD BKR ORDERABLES F inal Result [facility] [address] [place], [place] [id number] * PSA, free and total (08/05/2018 7:36 AM EST) PSA, TOTAL 0.17 <=3.5 ng/mL [facility] LAB MED/PATH [facility] FREE PSA <0.1 ng/mL [facility] FREE/TOT PSA RATIO SEE NOTE ratio [facility] MED/PATH [facility] Comment: (NOTE) Ratio was not calculated because free PSA is less than 0.1 ng/mL Ratio not calculated because clinical usefulness is not defined except in range of total PSA 4.0-10.0 ng/mL. ADDITIONAL INFORMATION The testing method is an electrochemiluminescence assay manufactured by [employer] and performed on the Modular or Intralign system. Values obtained with different assay methods or kits may be different and cannot be used interchangeably. Test results cannot be interpreted as absolute evidence for the presence or absence of malignant disease. Blood 08/05/2018 7:36 AM EST 08/05/2018 7:49 AM EST Thiago Corley MD LAB BLOOD BKR ORDERABLES F inal Result Performing Organization Address City/[facility]/ZIP Co de Phone Number [facility] LAB MED/PATH [address] [place] [address] * Ferritin (08/05/2018 7:36 AM EST) FERRITIN 56 30 - 400 ug/L [facility] Blood 08/05/2018 7:36 AM EST 08/05/2018 7:50 AM EST us Thiago Corley MD LAB BLOOD BKR ORDERABLES F inal Result Performing Organization Address [facility] Co de Phone Number [address] [address] * Ammonia (08/05/2018 7:36 AM EST) AMMONIA 78 28 - 80 umol/L [facility] Blood 08/05/2018 7:36 AM EST 08/05/2018 7:50 AM EST Thiago Corley MD LAB BLOOD BKR ORDERABLES F inal Result Performing Organization Address [facility] de Phone Number [address] [address] * (ABNORMAL) Lipid panel (08/05/2018 7:36 AM EST) HDL 68 mg/dL [facility] Comment: Interpretation <40 mg/dL: Low HDL cholesterol (major risk factor for CHD) Greater than or equal to 60 mg/dL: High HDL cholesterol ( negative risk factor for CHD) HDL - cholesterol is affected by a number of factors, e.g. smoking, excerise, hormones, sex and age. CHOLESTEROL 162 0 - 240 mg/dL [facility] TRIGLYCERIDES 59 30 - 160 mg/dL [facility] LDL 82 50 - 129 mg/dL [facility] Comment: LDL levels in terms of risk for coronary heart disease: <100 mg/dL: Optimal 100-129 mg/dL: Near or above optimal 130-159 mg/dL: Borderline high 160-189 mg/dL: High >190 mg/dL: Very High CARDIAC RISK RATIO 2.4(L) 3.4 - 5.0 [facility] Blood 08/05/2018 7:36 AM EST 08/05/2018 7:50 AM EST us Thiago Corley MD LAB BLOOD BKR ORDERABLES F inal Result Performing Organization Address City/[facility]/ZIP Co de Phone Number [address] [address] * Uric acid (08/05/2018 7:36 AM EST) URIC ACID 4.7 2.4 - 7.0 mg/dL [facility] Blood 08/05/2018 7:36 AM EST 08/05/2018 7:50 AM EST us Thiago Corley MD LAB BLOOD BKR ORDERABLES F inal Result Performing Organization Address [facility] Co de Phone Number [address] [address] * (ABNORMAL) Comprehensive metabolic panel (08/05/2018 7:36 AM EST) SODIUM 143 133 - 146 mmol/L [facility] POTASSIUM 4.2 3.3 - 5.1 mmol/L [facility] CHLORIDE 108 96 - 108 mmol/L [facility] CO2 28 21 - 35 mmol/L [facility] BUN 9 6 - 19 mg/dL [facility] CREATININE 0.80 0.5 - 1.5 mg/dL [facility] GLUCOSE 90 70 - 99 mg/dL [facility] ALBUMIN 3.9 3.9 - 4.8 g/dL [facility] TOTAL PROTEIN 6.8 6.5 - 8.0 g/dL [facility] CALCIUM 9.3 8.4 - 10.3 mg/dL [facility] ALKALINE PHOSPHATASE 116 39 - 117 U/L [facility] TOTAL BILIRUBIN 2.3(H) 0.0 - 1.2 mg/dL [facility] AST 46(H) 0 - 37 U/L [facility] ALT 26 0 - 40 U/L [facility] GLOBULIN 2.9 1 - 4.8 g/dL [facility] EGFR 103 >59 mL/min/1.7 3m2 [facility] Comment:If patient is black, multiply result by 1.159. Estimated glomerular filtration rate calculated using the CKD-EPI equation. ANION GAP 11 10 - 20 mmol/L [facility] Blood 08/05/2018 7:36 AM EST 08/05/2018 7:50 AM EST Thiago Corley MD LAB BLOOD BKR ORDERABLES F inal Result Performing Organization Address City/State/[facility] Co de Phone Number [address] [address] documented in this encounter Visit Diagnoses Diagnosis Hyperlipidemia, unspecified hyperlipidemia type- Primary Routine medical exam Routine general medical examination at a health care facility Hypersplenism Impotence Impotence of organic origin Biliary cirrhosis documented in this encounter Additional Health Concerns Infection Onset Date Last Indicated Resolved Time CoV-Risk 07/08/2020 07/08/2020 07/18/2020 1:24 AM EST documented as of this encounter Care Teams Traffic Routing Engineer Relationship Specialty Start Date End Date Thiago Corley MD [address] [place] [address] [place] [id number] PCP - General Medical Oncology 09/03/17 08/01/20 Thiago Corley MD [address] [place] [address] [place] [id number] PCP - General Medical Oncology 08/02/20 documented as of this encounter Additional Source Comments The information contained in this document represents components of the legal health record. It is not the complete legal health record.[facility]
--- OUTSIDE RECORDS SUMMARY | 2025-06-14 12:32 | XMS_ITS | Encounter Summary ---
Author Organization [facility] Address [address] [employer] [facility] [address] [place] [address] Phone Care Team Providers Care Clipper Automatic Name Role Phone Thiago Corley MD Primary Care Provider +1- [phone] Thiago Corley MD Primary Care Provider +1- [phone] Encounter Details Date Type Department Care Team (Latest Contact Info) Description 09/03/2017 Transcribe Orders [facility] [address] [address] Yancy Delgadillo PA-C [address], [address] [place] [address] [email or web address] Cirrhosis of liver without ascites, unspecified hepatic cirrhosis type (Primary Dx) Social History Tobacco Use Types Packs/Day Years Used Date Smoking Tobacco: Never Assessed Sex and Gender Information Value Date Recorded Sex Assigned at Not on file Legal Sex Male 11:13 AM EDT Gender Identity Not on file Sexual Orientation Not on file documented as of this encounter Plan of Treatment Not on file documented as of this encounter Results * (ABNORMAL) PT-INR (09/03/2017 9:36 AM EST) PT 14.2(H) 10.2 - 12.9 sec [facility] INR 1.2(H) 0.9 - 1.1 [facility] Comment:Therapeutic range fo r oral Vitamin K antagonists: 2.0-3.5 Blood 09/03/2017 9:36 AM EST 09/03/2017 9:40 AM EST us Yancy Delgadillo PA-C LAB BLOOD BKR ORDERABLES Final Result Performing Organization Address City/[facility]/ZIP Co de Phone Number [address] [address] * (ABNORMAL) Iron and iron binding capacity (09/03/2017 9:36 AM EST) IRON 134 45 - 160 ug/dL [facility] IRON BINDING CAPACITY 214(L) 228 - 428 ug/dL [facility] TRANSFERRIN SATURAT. 63(H) 20 - 55 % [facility] Blood 09/03/2017 9:36 AM EST 09/03/2017 9:40 AM EST us Yancy Delgadillo PA-C LAB BLOOD BKR ORDERABLES Final Result Performing Organization Address [facility] Co de Phone Number [address] [address] * Ferritin (09/03/2017 9:36 AM EST) FERRITIN 51 30 - 400 ug/L [facility] Blood 09/03/2017 9:36 AM EST 09/03/2017 9:40 AM EST us Yancy Delgadillo PA-C LAB BLOOD BKR ORDERABLES Final Result Performing Organization Address [facility] Co de Phone Number [address] [address] * (ABNORMAL) Comprehensive metabolic panel (09/03/2017 9:36 AM EST) SODIUM 141 133 - 146 mmol/L [facility] POTASSIUM 4.2 3.3 - 5.1 mmol/L [facility] CHLORIDE 105 96 - 108 mmol/L [facility] CO2 27 21 - 35 mmol/L [facility] BUN 9 6 - 19 mg/dL [facility] CREATININE 0.70 0.5 - 1.5 mg/dL [facility] GLUCOSE 88 70 - 99 mg/dL [facility] ALBUMIN 3.3(L) 3.9 - 4.8 g/dL [facility] TOTAL PROTEIN 6.6 6.5 - 8.0 g/dL [facility] CALCIUM 8.9 8.4 - 10.3 mg/dL [facility] ALKALINE PHOSPHATASE 121(H) 39 - 117 U/L [facility] TOTAL BILIRUBIN 2.1(H) 0 - 1.2 mg/dL [facility] AST 49(H) 0 - 37 U/L [facility] ALT 21 0 - 40 U/L [facility] GLOBULIN 3.3 1 - 4.8 g/dL [facility] EGFR >60 >60 mL/min/1.7 3m2 [facility] Comment:Abnormal if <60. If patient is -Mauritanian, multiply the result by 1.21. ANION GAP 13 10 - 20 mmol/L [facility] Blood 09/03/2017 9:36 AM EST 09/03/2017 9:40 AM EST us Yancy Delgadillo PA-C LAB BLOOD BKR ORDERABLES Final Result [facility] [address], [place] [id number] * (ABNORMAL) CBC and differential (09/03/2017 9:36 AM EST) WBC 2.54(LL) 3.40 - 11.20 K/uL [facility] RBC 3.97(L) 4.50 - 5.50 M/uL [facility] HGB 12.6(L) 13.0 - 17.0 g/dL [facility] HCT 36.3(L) 40.0 - 51.0 % [facility] PLT 62(L) 130 - 400 K/uL [facility] Comment:Microscopic estimate : Platelets decreased. MCV 91.4 79.0 - 98.0 fL [facility] MCH 31.7 27.0 - 34.8 pg [facility] MCHC 34.7 31.5 - 36.0 g/dL [facility] RDW 12.7 10.8 - 14.6 % [facility] MPV 10.5 9.4 - 12.4 fl [facility] NRBC 0.00 /100 WBCs [facility] ABSOLUTE NRBC 0.00 K/uL [facility] DIFF METHOD Auto [facility] NEUTS 53.1 45.30 - 77.70 % [facility] LYMPHS 25.6 12.30 - 39.70 % [facility] MONOS 16.9(H) 4.10 - 12.80 % [facility] EOS 2.4 0 - 7.2 % [facility] BASOS 1.6 0 - 2.80 % [facility] Granulocytes, immature (%) 0.4 0.0 - 0.9 % [facility] ABSOLUTE NEUTS 1.35(L) 1.40 - 7.70 K/uL [facility] ABSOLUTE LYMPHS 0.65 0.60 - 3.20 K/uL [facility] ABSOLUTE MONOS 0.43 0.11 - 0.59 K/uL [facility] ABSOLUTE EOS 0.06 0.01 - 0.50 K/uL [facility] ABSOLUTE BASOS 0.04 0.00 - 0.08 K/uL [facility] Granulocytes, immature 0.01 0.00 - 0.05 K/uL [facility] Blood 09/03/2017 9:36 AM EST 09/03/2017 9:40 AM EST aYncy Delgadillo PA-C LAB BLOOD BKR ORDERABLES Edited Result - Final [address] [address] * Lezqh-6-uyilzndlskm phenotyping (09/03/2017 9:36 AM EST) ALPHA 1 ANTITRYPSIN 169 100 - 190 mg/dL [facility] DPT OF LAB MED AND PAT+ A1A PHENOTYPE MM bands [facility] DPT OF LAB MED AND PAT+ Comment: (NOTE) A single M isoform is detected. In the context of a normal kqatm-0-cqapukplvne concentration, this is consistent with an MM phenotype. Blood 09/03/2017 9:36 AM EST 09/03/2017 9:41 AM EST us Yancy Delgadillo PA-C LAB BLOOD ORDERABLES Final Resu lt [facility] DPT OF LAB MED AND PAT+ [address] [place] [address] documented in this encounter Visit Diagnoses Diagnosis Cirrhosis of liver without ascites, unspecified hepatic cirrhosis type- Primary documented in this encounter Additional Health Concerns Infection Onset Date Last Indicated Resolved Time CoV-Risk 07/08/2020 07/08/2020 07/18/2020 1:24 AM EST documented as of this encounter Care Teams Clipper Automatic Relationship Specialty Start Date End Date Thiago Corley MD [address] [place] [address] [place] [address] PCP - General Medical Oncology 09/03/17 08/01/20 Thiago Corley MD [address] [place] [address] [place] [address] PCP - General Medical Oncology 08/02/20 documented as of this encounter Additional Source Comments The information contained in this document represents components of the legal health record. It is not the complete legal health record.[facility]
--- OUTSIDE RECORDS SUMMARY | 2025-06-14 12:33 | XMS_ITS | Encounter Summary ---
Author Organization [facility] Address [address] [employer] [facility] [address] [place] [address] Phone Care Team Providers Care Machine Greaser Name Role Phone Thiago Corley MD Primary Care Provider +1- [phone] Encounter Details Date Type Department Care Team (Late st Contact Info) Description 08/22/2020 Ancillary Orders [facility] Orthopedics & Sports Medicine [address] [place] [address] Zulema Dove PA-C [address] [place] [address] Orthopedics & Sports Medicine, [facility] [place] [address] Social History Tobacco Use Types Packs/Day Years Used Date Smoking Tobacco: Never Smokeless Tobacco: Never Alcohol Use Standard Drinks/Week Comments Yes 0 (1 standard drink = 0.6 oz pur e alcohol) Sex and Gender Information Value Date Recorded Sex Assigned at Not on file Legal Sex Male 11:13 AM EDT Gender Identity Not on file Sexual Orientation Not on file documented as of this encounter Plan of Treatment Not on file documented as of this encounter Visit Diagnoses Not on filedocumented in this encounter Care Teams Machine Greaser Relationship Specialty Start Date End Date Thiago Corley MD [address] [place] [address] [place] [address] PCP - General Medical Oncology 08/02/20 documented as of this encounter Additional Source Comments The information contained in this document represents components of the legal health record. It is not the complete legal health record.[facility]
--- OUTSIDE RECORDS SUMMARY | 2025-06-14 12:33 | XMS_ITS | Encounter Summary ---
Author Organization [facility] Address [facility] [address] [place] [address] Phone Care Team Providers Care Rewinder Operator Helper Name Role Phone Thiago Corley MD Primary Care Provider +1- [phone] Thiago Corley MD Primary Care Provider +1- [phone] Encounter Details Date Type Department Care Team (Late st Contact Info) Description 07/23/2020 Ancillary Orders [facility] Orthopedics & Sports Medicine [address] [place] [address] Varghese Gutierrez PA-C [address] [place] [address] Orthopedics & Sports Medicine, [place], [place] [id number] [email or web address] Social History Tobacco Use Types Packs/Day Years [...] on filedocumented in this encounter Care Teams Rewinder Operator Helper Relationship Specialty Start Date End Date Thiago Corley MD [address] [place] [address] [place] [address] PCP - General Medical Oncology 09/03/17 08/01/20 Thiago Corley MD [address] [place] [address] [place] [address] PCP - General Medical Oncology 08/02/20 documented as of this encounter Additional Source Comments The information contained in this document represents components of the legal health record. It is not the complete legal health record.[facility]
--- OUTSIDE RECORDS SUMMARY | 2025-06-14 12:33 | XMS_ITS | Encounter Summary ---
Author Organization [facility] Address [address] [employer] [facility] [address] [place] [address] Phone Care Team Providers Care Minor League Baseball Player Name Role Phone Thiago Corley MD Primary Care Provider +1- [phone] Thiago Corley MD Primary Care Provider +1- [phone] Encounter Details Date Type Department Care Team (Late st Contact Info) Description 07/23/2020 Ancillary Orders [address] [address] Varghese Gutierrez PA-C [address] [place] [address] Orthopedics & Sports Medicine, [place] [address] [email or web address] Wrist pain, acute, left Social History Tobacco Use Types Packs/Day Years [...] documented as of this encounter Results * XR WRIST 2 VIEWS (LEFT) (07/23/2020 9:23 AM EST) Narrative SYSTEMGENERATED, DOCUMENTATION - 07/23/2020 9:24 AM EST This image report has been auto-finalized and has not been read by a Radiologist. Interpretation has been included in the provider encounter note for this date of service. Varghese Gutierrez PA-C IMG XR UPPER EXTREMITY Final Result documented in this encounter Visit Diagnoses Diagnosis Wrist pain, acute, left Wrist pain, acute, left documented in this encounter Care Teams Minor League Baseball Player Relationship Specialty Start Date End Date Thiago Corley MD [address] [place] [address] Dr [place] [address] PCP - General Medical Oncology 09/03/17 08/01/20 Thiago Corley MD [address] [place] [address] Dr [address] [place] [address] PCP - General Medical Oncology 08/02/20 documented as of this encounter Additional Source Comments The information contained in this document represents components of the legal health record. It is not the complete legal health record.[facility]
--- OUTSIDE RECORDS SUMMARY | 2025-06-14 12:33 | XMS_ITS | Patient Health Record ---
Author Organization Thiago Corley III, MD Address [address] [place] [address] Care Team Providers Care Aluminum Siding Applicator Name Role Phone Dr. Thiago Corley III Primary Care Provider [phone] Allergies Allergen (clinical drug ingredient) Drug/Non Drug [...] Provider Speciality Internal M edicine Referred Organization [facility] Address [address] [place] [id number], Referred Provider Specialty Gastroentero logy Referral Priority Routine Medications Medication SIG (Take, Route, Frequency, Duration) Notes Start Date End Date Status Pantoprazole Sodium 40 MG 1 tablet 1/2 t o 1 hour before morning meal Oral Once a day Active Sildenafil Citrate 100 MG 1 tablet Orally Once a day 01/17/2025 Active Immunizations Vaccine Route Administration Date Status Comme nts Influenza Unknown 05/04/2014 Administered Influenza, quad Unknown 04/14/2017 Administered COVID PFIZER Unknown 07/24/2020 Administered Influenza, quad Unknown 04/12/2021 Administered Influenza, quad Unknown 04/18/2019 Administered Influenza, quad Unknown 04/28/2018 Administered COVID PFIZER Unknown 06/25/2021 Administered COVID PFIZER Unknown 07/03/2020 Administered COVID- 19 Vaccine Unknown 04/29/2022 Administered PCV20 Unknown 03/04/2023 Administered Influenza, quad Unknown 03/04/2023 Administered Flu-IIv4 Unknown 04/29/2022 Administered COVID Pfizer Bivalent Unknown 04/29/2022 Administered Influenza Vaccine Afluria IM Intramuscular 06/14/2025 Admi [...] Problem Status W/U Status Risk Notes Problem 98105092 Hyperlipidemia (E78.5) Active confirmed Comprehensive blood work including a fasting lipid profile has been ordered. Problem 207379011 Overweight (E66.3) Active confirmed His body mass index is 26. We discussed his diet and nutrition. We made a plan to lose weight at a rate of one half of a pound per week. Problem 150991451 Thrombocytopenia (D69.6) Active confirmed He has had no bleeding. He is known to hypersplenism. Comprehensive blood work with a CBC is pending. 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 The liver and spleen are not palpable today. He has had no bleeding from the thrombocytopen ia. Problem Hypersomnia (21243848) Hypersomnia, unspecified (G47.10) Active confirmed Problem Erectile dysfunction (disorder) (415657713) Erectile dysfunction, unspecified erectile dysfunction type (N52.9) Active confirmed This problem has been successfully remedied with medication. Problem 811199360 Neuropathy (G62.9) Active confirmed His neuropathy in his lower extremities is unchanged and mild. He is completing all of the tests of daily life without impairment. Problem 11743287 Lyme disease (A69.20) Active confirmed Problem 21154620 Hepatic cirrhosi s (K74.60) Active confirmed Problem 20619891 Dysphagia, unspecified type (R13.10) Active confirmed Problem 63014122 Alcoholic liver disease (K70.9) Active confirmed He continues in recovery. The TIPS catheter is patent and functioning on the recent abdominal ultrasound. Problem 315739044 Anxiety disorder , unspecified type (F41.9) Active confirmed He is doing well currently working full-time in completing all activities of daily living without drinking alcohol. Vital Signs Heart Rate 67 /min 06/14/2025 Temperature 98.2 degrees Fahrenheit 06/14/2025 Blood pressure diastolic 83 mm Hg 06/14/2025 Height 6 ft 1 in in 06/14/2025 Blood pressure systolic 136 mm Hg 06/14/2025 Weight 188 lbs 06/14/2025 BMI 24.8 kg/m2 06/14/2025 Encounters Encounter Location Date Provider Diagnosis Thiago Corley III, MD [address] [place] [address] [place] [address] 06/14/2025 Thiago Corley Dysphagia, unspecifi ed type R13.10 ; Weight loss R63.4 ; Thrombocytopenia D69.6 ; Unspecified jaundice R17 ; Hepatic cirrhosis K74.60 and Encounter for immunization Z23 Thiago Corley III, MD [address] [place] [address] [place] [address] 01/17/2025 Thiago Corley Hyperlipidemia E78.5 ; Hypersplenism D73.1 ; Thrombocytopenia D69.6 ; Erectile dysfunction, unspecified erectile dysfunction type N52.9 ; Anxiety disorder, unspecified type F41.9 ; Alcoholic liver disease K70.9 and Overweight E66.3 Thiago Corley III, MD [address] [place] [address] [place] [address] 05/31/2025 Thiago Corley Assessments Encounter Date Diagnosis (ICD Code) Assessment Notes Treat ment Notes Treatment Clinical Notes 06/14/2025 Dysphagia, unspecifi ed type (ICD-10 - R13.10) 01/17/2025 Hyperlipidemia (ICD- 10 - E78.5) Comprehensive blood work including a fasting lipid profile has been ordered. 01/17/2025 Hypersplenism (ICD-1 0 - D73.1) Comprehensive blood work was ordered. The liver and spleen are not palpable today. He has had no bleeding from the thrombocytopenia. 06/14/2025 Weight loss (ICD-10 - R63.4) 01/17/2025 Thrombocytopenia (ICD-10 - D69.6) He has had no bleeding. He is known to hypersplenism. Comprehensive blood work with a CBC is pending. 06/14/2025 Thrombocytopenia (ICD-10 - D69.6) 01/17/2025 Erectile dysfunction , unspecified erectile dysfunction type (ICD-10 - N52.9) This problem has been successfully remedied with medication. 06/14/2025 Unspecified jaundice (ICD-10 - R17) 01/17/2025 Anxiety disorder, unspecified type (ICD-10 - F41.9) He is doing well currently working full-time in completing all activities of daily living without drinking alcohol. 06/14/2025 Hepatic cirrhosis (ICD-10 - K74.60) 01/17/2025 Alcoholic liver disease (ICD-10 - K70.9) He continues in recovery. The TIPS catheter is patent and functioning on the recent abdominal ultrasound. 06/14/2025 Encounter for immunization (ICD-10 - Z23) 01/17/2025 Overweight (ICD-10 - E66.3) His body mass index is 26. We discussed his diet and nutrition. We made a plan to lose weight at a rate of one half of a pound per week. Plan Of Treatment Pending Test Test Name Order Date PROFILE, FASTING (COMPREHENSIVE METABOLI C) 05/21/2022 PROFILE, FASTING (COMPREHENSIVE METABOLI C) 02/23/2019 PROFILE, FASTING (COMPREHENSIVE METABOLI C) 08/05/2019 PROFILE, FASTING (COMPREHENSIVE METABOLI C) 05/28/2023 PROFILE, FASTING (COMPREHENSIVE METABOLI C) 11/19/2022 PROFILE, FASTING (COMPREHENSIVE METABOLI C) 06/14/2025 PROFILE, FASTING (COMPREHENSIVE METABOLI C) 05/16/2019 PROFILE, FASTING (COMPREHENSIVE METABOLI C) 12/22/2016 PROFILE, FASTING (COMPREHENSIVE METABOLI C) 07/28/2018 PROFILE, FASTING (COMPREHENSIVE METABOLI C) 05/20/2022 PROFILE, FASTING (COMPREHENSIVE METABOLI C) 01/17/2025 PROFILE, RANDOM (COMPREHENSIVE METABOLIC ) 07/22/2017 URIC ACID 07/28/2018 LIPID PANEL 07/28/2018 LIPID PANEL 05/21/2022 LIPID PANEL 02/23/2019 LIPID PANEL 08/05/2019 LIPID PANEL 11/19/2022 LIPID PANEL 05/16/2019 LIPID PANEL 12/22/2016 AMMONIA 07/28/2018 FERRITIN 02/23/2019 FERRITIN 08/05/2019 FERRITIN 07/28/2018 PSA, TOTAL 01/17/2025 PSA, TOTAL 05/28/2023 PSA, TOTAL 05/21/2022 PSA, TOTAL 06/14/2025 PSA, TOTAL 11/19/2022 PSA, TOTAL 02/23/2019 PSA, TOTAL 07/28/2018 PSA, TOTAL 12/22/2016 CBC w DIFF 07/22/2017 CBC w DIFF 01/17/2025 CBC w DIFF 05/28/2023 CBC w DIFF 05/21/2022 CBC w DIFF 08/05/2019 CBC w DIFF 06/14/2025 CBC w DIFF 05/16/2019 CBC w DIFF 11/19/2022 CBC w DIFF 02/23/2019 CBC w DIFF 07/28/2018 CBC w DIFF 05/20/2022 PROTHROMBIN TIME (PT, INR) 07/22/2017 PARTIAL THROMBOPLASTIN TIME (PTT) 2017 MUMPS AB IGG 08/01/2022 ALPHA-FETOPROTEIN,TUMOR MARKER 2 ALPHA-FETOPROTEIN,TUMOR MARKER 2 ALPHA-FETOPROTEIN,TUMOR MARKER 0 ALPHA-FETOPROTEIN,TUMOR MARKER 9 ALPHA-FETOPROTEIN,TUMOR MARKER 3 AFP MATERNAL TRIPLE MARKER 02/23/2019 XR GI SERIES 06/14/2025 US ABD 05/04/2019 US ABD 07/27/2017 VITAMIN D 25-OH TOTAL 05/21/2022 RUBELLA IGG 08/01/2022 Ferritin 05/20/2022 Prealbumin 06/14/2025 Lipid Panel 06/14/2025 Lipid Panel 01/17/2025 Lipid Panel 05/20/2022 Lipid Panel 05/28/2023 Hepatitis B Core Antibody 08/01/2022 Rubeola IgG (Measles) 08/01/2022 Varicella IgG Antibody 08/01/2022 T Spot TB 08/01/2022 Next Appt Details Provider Name:Thiago Corley , 01/18/2026 11:00:00 AM, [address] [place] [address] DR, [facility] [address], [place], [address], Insurance Providers Payer Name Payer Address Payer Phone Subscriber Number Group Number Insured Name Patient Relationship to Insured Coverage Start Date Coverage End Date [facility] [address] [place] [phone] [id number] Truong Casper Sr Self - patient is the insured 4 Medical (General) History Medical History History ICD Code tick bite hernia lateral meniscus tear of left knee 2004 erectile dysfunction C282Y heterozygote for hemochromatosis elevated ferritin: 441 2010 hyperlipidemia thrombocytopenia: 107 2010 1993 hepatitis B vaccine 2002 injury left third and fourth digits fungal dermatitis abnormal liver function tests, Dr. Petersen ord, ? Autoimmune 2006, +EBV hepatosplenomegaly, spleen 13.5cm 2010 ED peroneal hemorrhage abdominal varices alcoholic liver disease Mild Beth his disease Surgical History Surgery Date(Month/Year) Right shoulder surgery- [facility] 2023 repair incarcerated umbilical hernia, Dr Banks 08/2005 left knee arthroscopy
--- OUTSIDE RECORDS SUMMARY | 2025-06-14 12:33 | XMS_ITS | Encounter Summary ---
Author Organization [facility] Address [address] [employer] [facility] [address] [place] [address] Phone Care Team Providers Care Mirror Polisher Name Role Phone Thiago Corley MD Primary Care Provider +1- [phone] Reason for Referral * MRI/CAT Scan - Closed Specialty Diagnoses / Procedures Referred By Contac t Referred To Contact Radiology Diagnoses Hepatic cirrhosis, unspecified hepatic cirrhosis type, unspecified whether ascites present Procedures MRI Abdomen Danial Gibson MD Phone: tel: fax: Referral ID Status Reason Start Date Expiration Date Visits Re quested Visits Authorized [id number] Closed 05/28/2021 05/28/2022 1 1 * Outpatient Procedure - Closed Specialty Diagnoses / Procedures Referred By Contac t Referred To Contact Radiology Diagnoses Hepatic cirrhosis, unspecified hepatic cirrhosis type, unspecified whether ascites present Procedures US Abdomen Complete Danial Gibson MD Phone: tel: fax: Referral ID Status Reason Start Date Expiration Date Visits Re quested Visits Authorized [id number] Closed 05/28/2021 05/28/2022 1 1 Encounter Details Date Type Department Care Team (Latest Contact Info) Description 05/28/2021 Transcribe Orders Virtual Department [address] [place] [address] Danial Gibson MD [address] [place] [address] Hepatic cirrhosis, unspecified hepatic cirrhosis type, unspecified whether ascites present (Primary Dx) Social History Tobacco Use Types [...] documented as of this encounter Results * MRI ABDOMEN WITH AND WITHOUT CONTRAST (06/16/2021 9:33 AM EST) Anatomical Region Laterality Modality Abdomen Magnetic Resonan ce 06/17/2021 8:24 AM EST Impressions 06/17/2021 8:42 AM EST Inhomogeneous edema type signal through much of the right hepatic lobe with underlying cirrhosis. Small area of abnormal enhancement measuring slightly over centimeter maximally in segment 4A may be perfusional abnormality but warrants follow-up over time. Difficult to assess for shunt patency but no signs of failure and there does appear to at least some enhancement in the shunt. No progressive findings of concern are detected. POS [id number] Narrative 06/17/2021 8:42 AM EST HISTORY: Cirrhosis. TIPS. Prior abnormal MRI COMPARISON: September 19, 2020 TECHNIQUE: Exam performed on a 1.5 Jacinda high-field MRI scanner. Axial T1 in and out of phase, T2, extended TE T2, and T1 with fat suppression, coronal T2, followed by post-gadolinium multi-phase axial T1 series with fat suppression sequences were obtained through the liver. FINDINGS: Lung bases: No effusions. No consolidation or gross mass lesion. Liver: Cirrhotic contour. Slightly more edema type signal through much of the right lobe compared to left. No prominent signal dropout on out of phase imaging.the non-mass area of increased long TR hyperintensity near the level of the shunt is again noted but this is largely in a plane in the AP direction. There is some other T2 signal more posteriorly in the right hepatic lobe which is better seen today but probably present previously as well and again does not have mass configuration. No abnormal enhancement in these areas. There is a focal area of somewhat wedge- shaped enhancement in segment 4A seen on the very early phases, best seen at the arterial phase 703:30 where it measures maximally 12 x 10 mm. There is not a definite correlate on other sequences. This may be of small perfusional abnormality and regenerating nodule/early malignancy is considered much less likely but warrants surveillance over time in the given clinical setting. A more equivocal area slightly slightly more towards the lateral segment is noted slightly below this on the same early sequences and may be vascular alone. No highly suspicious lesions. Spleen: Splenomegaly consistent with portal hypertension with craniocaudal extent of 13 cm and oblique AP extent of 15 cm, both within the error of measurement compared to prior. No focal lesions. Gallbladder and biliary tree: Cholelithiasis again noted without evidence of cholecystitis or biliary dilatation. No choledocholithiasis. Pancreas: No pancreatic ductal dilatation, mass, or cyst is seen. Adrenals: No adrenal masses. Kidneys: No solid masses. No hydronephrosis. Nodes: No severiano lymphadenopathy is detected. Bowel: Limited. No bowel dilatation or gross thickening. Vascular: No abdominal aortic aneurysm. Difficult to assess for definitive flow within the shunt but there is some enhancement suggested. No progressive varices seen. Some recanalization of umbilical vein noted. Soft tissue: No ascites. No fluid collections or prominent inflammatory changes appreciated. Musculoskeletal: Limited assessment. No findings of clear concern. Procedure Note Damián Bhatti MD - 06/17/2021 HISTORY: Cirrhosis. TIPS. Prior abnormal MRI COMPARISON: September 19, 2020 TECHNIQUE: Exam performed on a 1.5 Jacinda high-field MRI scanner. Axial T1in and out of phase, T2, extended TE T2, and T1 with fat suppression,coronal T2, followed by post-gadolinium multi-phase axial T1 series withfat suppression sequences were obtained through the liver. FINDINGS: Lung bases: No effusions. No consolidation or gross mass lesion. Liver: Cirrhotic contour. Slightly more edema type signal through much ofthe right lobe compared to left. No prominent signal dropout on out ofphase imaging.the non-mass area of increased long TR hyperintensity nearthe level of the shunt is again noted but this is largely in a plane inthe AP direction. There is some other T2 signal more posteriorly in theright hepatic lobe which is better seen today but probably presentpreviously as well and again does not have mass configuration. No abnormalenhancement in these areas. There is a focal area of somewhat wedge-shapedenhancement in segment 4A seen on the very early phases, best seen at thearterial phase 703:30 where it measures maximally 12 x 10 mm. There is nota definite correlate on other sequences. This may be of small perfusionalabnormality and regenerating nodule/early malignancy is considered muchless likely but warrants surveillance over time in the given clinicalsetting. A more equivocal area slightly slightly more towards the lateralsegment is noted slightly below this on the same early sequences and maybe vascular alone. No highly suspicious lesions. Spleen: Splenomegaly consistent with portal hypertension with craniocaudalextent of 13 cm and oblique AP extent of 15 cm, both within the error ofmeasurement compared to prior. No focal lesions. Gallbladder and biliary tree: Cholelithiasis again noted without evidenceof cholecystitis or biliary dilatation. No choledocholithiasis. Pancreas: No pancreatic ductal dilatation, mass, or cyst is seen. Adrenals: No adrenal masses. Kidneys: No solid masses. No hydronephrosis. Nodes: No severiano lymphadenopathy is detected. Bowel: Limited. No bowel dilatation or gross thickening. Vascular: No abdominal aortic aneurysm. Difficult to assess for definitiveflow within the shunt but there is some enhancement suggested. Noprogressive varices seen. Some recanalization of umbilical vein noted. Soft tissue: No ascites. No fluid collections or prominent inflammatorychanges appreciated. Musculoskeletal: Limited assessment. No findings of clear concern. IMPRESSION: Inhomogeneous edema type signal through much of the right hepatic lobewith underlying cirrhosis. Small area of abnormal enhancement measuringslightly over centimeter maximally in segment 4A may be perfusionalabnormality but warrants follow-up over time. Difficult to assess forshunt patency but no signs of failure and there does appear to at leastsome enhancement in the shunt. No progressive findings of concern aredetected. POS [id number] Danial Gibson MD IMKeyur MR ABDOMEN Final Result * US Abdomen Complete (06/10/2021 7:43 AM EST) Anatomical Region Laterality Modality Abdomen Ultrasound 06/10/2021 8:39 AM EST Impressions 06/10/2021 8:50 AM EST 1.Generally patent TIPS, no significant ascites and features of liver cirrhosis with mild splenomegaly. 2.Evidence of cholelithiasis without evidence of cholecystitis. Narrative 06/10/2021 8:50 AM EST US ABDOMEN COMPLETE TECHNIQUE: Abdominal Ultrasound Complete. COMPARISON: Correlation is made to an MRI dated 09/19/2020 FINDINGS: Liver: Echotexture of the liver is coarse as seen in advanced liver cirrhosis. There is hepatopedal flow within the main portal vein. A TIPS is present with the following flow velocities in centimeters per second: Proximal 49.7, mid 38.7, distal 49.4 and likely without significant stenosis. Gallbladder: There are focal areas of increased echogenicity at the dependent portion of the gallbladder consistent with gallbladder stones as known from prior imaging. Evaluation is somewhat limited due to overlying bowel gas. Biliary: Normal. No intrahepatic or extrahepatic biliary ductal dilatation. The common bile duct measures 7 mm. Complete evaluation is again limited due to overlying bowel gas. Pancreas: Incompletely visualized. Spleen: There is mild splenomegaly, the spleen measures 13.6 cm in largest dimension. Kidneys: Normal. No stones or hydronephrosis. Aorta: Normal, where visualized sonographically. IVC: Normal intrahepatic segment. Procedure Note Julio Odell MD - 06/10/2021 US ABDOMEN COMPLETE TECHNIQUE: Abdominal Ultrasound Complete. COMPARISON: Correlation is made to an MRI dated 09/19/2020 FINDINGS: Liver: Echotexture of the liver is coarse as seen in advanced livercirrhosis. There is hepatopedal flow within the main portal vein. A TIPSis present with the following flow velocities in centimeters per second:Proximal 49.7, mid 38.7, distal 49.4 and likely without significantstenosis. Gallbladder: There are focal areas of increased echogenicity at thedependent portion of the gallbladder consistent with gallbladder stones asknown from prior imaging. Evaluation is somewhat limited due to overlyingbowel gas. Biliary: Normal. No intrahepatic or extrahepatic biliary ductaldilatation. The common bile duct measures 7 mm. Complete evaluation isagain limited due to overlying bowel gas. Pancreas: Incompletely visualized. Spleen: There is mild splenomegaly, the spleen measures 13.6 cm in largestdimension. Kidneys: Normal. No stones or hydronephrosis. Aorta: Normal, where visualized sonographically. IVC: Normal intrahepatic segment. IMPRESSION: 1.Generally patent TIPS, no significant ascites and features of livercirrhosis with mild splenomegaly. 2.Evidence of cholelithiasis without evidence of cholecystitis. us Danial Gibson MD IMG US ABDOMEN Final Result documented in this encounter Visit Diagnoses Diagnosis Hepatic cirrhosis, unspecified hepatic cirrhosis type, unspecified whether ascites present- Primary Hepatic cirrhosis, unspecified hepatic cirrhosis type, unspecified whether ascites present Hepatic cirrhosis, unspecified hepatic cirrhosis type, unspecified whether ascites present documented in this encounter Care Teams Mirror Polisher Relationship Specialty Start Date End Date Thiago Corley MD [address] [place] [address] [place] [address] PCP - General Medical Oncology 08/02/20 documented as of this encounter Additional Source Comments The information contained in this document represents components of the legal health record. It is not the complete legal health record.[facility]
--- OUTSIDE RECORDS SUMMARY | 2025-06-14 12:33 | XMS_ITS | Encounter Summary ---
Author Organization [facility] Address [address] [place] [address] Phone Care Team Providers Care Laydown Machine Operator Name Role Phone Thiago Corley MD Primary Care Provider +1- [phone] Encounter Details Date Type Department Care Team (Late st Contact Info) Description 05/28/2021 Procedure [facility], [address] [address] Social History Tobacco Use Types Packs/Day Years [...] on filedocumented in this encounter Care Teams Laydown Machine Operator Relationship Specialty Start Date End Date Thiago Corley MD [address] [place] [address] [place] [address] PCP - General Medical Oncology 08/02/20 documented as of this encounter Additional Source Comments The information contained in this document represents components of the legal health record. It is not the complete legal health record.[facility]
--- OUTSIDE RECORDS SUMMARY | 2025-06-14 12:33 | XMS_ITS | Encounter Summary ---
Author Organization [facility] Address [address] [employer] [facility] [address] [place] [address] Phone Care Team Providers Care Road Conductor Name Role Phone Thiago Corley MD Primary Care Provider +1- [phone] Thiago Corley MD Primary Care Provider +1- [phone] Encounter Details Date Type Department Care Team (Late st Contact Info) Description 07/25/2020 Ancillary Orders [facility],Outside Imaging [address] [place] [address] System, Provider Not In, [place] [address] Social History Tobacco Use Types Packs/Day Years [...] as of this encounter Results * XR Upper Extremity Outside (No Interpretation) (07/20/2020 12:00 AM EST) Narrative SYSTEMGENERATED, DOCUMENTATION - 07/25/2020 10:23 AM EST This study is for PACS storage only and not for interpretation. us Provider Not In System PhD IMG OUTSIDE IMAGING W /OUT INTERPRETATION Final Result documented in this encounter Visit Diagnoses Not on filedocumented in this encounter Care Teams Road Conductor Relationship Specialty Start Date End Date Thiago Corley MD [address] [place] [address] Dr Kidd [place]ast[place] [address] PCP - General Medical Oncology 09/03/17 08/01/20 Tihago Corley MD [address] [place] [address] Dr Kidd [place]ast[place] [address] PCP - General Medical Oncology 08/02/20 documented as of this encounter Additional Source Comments The information contained in this document represents components of the legal health record. It is not the complete legal health record.[facility]
--- OUTSIDE RECORDS SUMMARY | 2025-06-14 12:33 | XMS_ITS | Encounter Summary ---
Author Organization [facility] Address [address] [employer] [facility] [address] [place] [address] Phone Care Team Providers Care Natural Resource Specialist Name Role Phone Thiago Corley MD Primary Care Provider +1- [phone] Encounter Details Date Type Department Care Team (Late st Contact Info) Description 08/22/2020 Ancillary Orders [address] [address] Zulema Dove PA-C [address] [place] [address] Orthopedics [facility] Medicine, [place] [address] [email or web address] Wrist pain, acute, left Social History Tobacco [...] Results * XR WRIST 2 VIEWS (LEFT) (08/22/2020 8:08 AM EST) Narrative SYSTEMGENERATED, DOCUMENTATION - 08/22/2020 8:08 AM EST This image report has been auto-finalized and has not been read by a Radiologist. Interpretation has been included in the provider encounter note for this date of service. us Zulema Dove PA-C IMG XR UPPER EXTREMI TY Final Result documented in this encounter Visit Diagnoses Diagnosis Wrist pain, acute, left Wrist pain, acute, left documented in this encounter Care Teams Natural Resource Specialist Relationship Specialty Start Date End Date Thiago Corley MD [address] [place] [address] [place] [address] PCP - General Medical Oncology 08/02/20 documented as of this encounter Additional Source Comments The information contained in this document represents components of the legal health record. It is not the complete legal health record.[facility]
--- OUTSIDE RECORDS SUMMARY | 2025-06-14 12:33 | XMS_ITS | Encounter Summary ---
Author Organization [facility] Address [address] [employer] [facility] [address] [place] [address] Phone Care Team Providers Care State Inspector Name Role Phone Thiago Corley MD Primary Care Provider +1- [phone] Thiago Corley MD Primary Care Provider +1- [phone] Reason for Referral * Outpatient Procedure - Closed Specialty Diagnoses / Procedures Referred By Mackenzie lawrence Referred To Contact Radiology Diagnoses Abdominal pain, unspecified abdominal location Procedures US Abdomen Complete With Vasculature (Doppler) Thiago Corley MD Phone: tel: fax: Referral ID Status Reason Start Date Expiration Date Visits Re quested Visits Authorized [id number] Closed 05/04/2019 05/03/2020 1 1 Encounter Details Date Type Department Care Team (Late st Contact Info) Description 05/04/2019 Ancillary Orders Virtual Department [address] [place] [address] Thiago Corley MD [address] [place] [address] [place] [address] Abdominal pain, unspecified abdominal location Social History Tobacco Use Types Packs/Day Years Used Date Smoking Tobacco: Never Assessed Sex and Gender Information Value Date Recorded Sex Assigned at Not on file Legal Sex Male 11:13 AM EDT Gender Identity Not on file Sexual Orientation Not on file documented as of this encounter Plan of Treatment Not on file documented as of this encounter Results * US Abdomen Complete With Vasculature (Doppler) (05/09/2019 12:09 PM EDT) Anatomical Region Laterality Modality Abdomen Ultrasound 05/09/2019 12:2 3 PM EDT Addenda Addendum by Mandeep Rondon MD on 05/26/2019 10:52 AM EST ADDENDUM for corrections to voice recognition: COMPARISON: None. FINDINGS: The pancreas is nonvisualized because of obscuring bowel gas. The TIPS shunt in the liver is visualized and appears patent with hepatopedal flow. The portal vein is also patent with hepatopedal flow. There is coarsened echotexture of the hepatic parenchyma without focal findings noted. No dilatation of intra >>> OR EXTRAHEPATIC <<< hepatic bile ducts is noted with the common duct measuring 4 mm in diameter. The gallbladder wall is thickened without hyperemia or gallstones seen. The kidneys are not hydronephrotic. No nephrolithiasis is seen. The spleen is borderline normal measuring 13 mm in span. The aorta is not visualized. The inferior vena cava is unremarkable. IMPRESSION: >>> BOTH <<< routine ultrasound and Doppler ultrasound imaging is obtained. The TIPS shunt is patent with hepatopedal flow as is the portal vein. The hepatic >>> ECHOTEXTURE <<< is coarsened without focal findings. No bile duct dilatation is seen. Mild gallbladder wall thickening without hyperemia or cholelithiasis evident. S/S: RIGHT SIDED ABDOMEN PAIN, TIPS CATHETER CHECK PATENCY . POS - [id number] Edited by: Mar Vazquez on 05/25/2019 9:25 PM Impressions 05/09/2019 12:27 PM EDT Post routine ultrasound and Doppler ultrasound imaging is obtained. The tips shunt is patent with hepatopedal flow as is the portal vein. The hepatic architecture is coarsened without focal findings. No bile duct dilatation is seen. Mild gallbladder wall thickening without hyperemia or cholelithiasis is evident. S/S: RIGHT SIDED ABDOMEN PAIN, TIPS CATHETER CHECK PATENCY . POS - [id number] Narrative 05/09/2019 12:27 PM EDT COMPARISON: None FINDINGS: The pancreas is nonvisualized because of obscuring bowel gas. The TIPS shunt in the liver is visualized and appears patent with hepatopedal flow. The portal vein is also patent with hepatopedal flow. There is coarsened echotexture of the hepatic parenchyma without focal findings noted. No dilatation of intrahepatic bile ducts is noted with the common duct measuring 4 mm in diameter. The gallbladder wall is thickened without hyperemia or gallstones seen. The kidneys are not hydronephrotic. No nephrolithiasis is seen. The spleen is borderline normal measuring 13 mm in span. The aorta is not visualized. The inferior vena cava is unremarkable. Procedure Note Mandeep Rondon MD - 05/09/2019 COMPARISON: None FINDINGS: The pancreas is nonvisualized because of obscuring bowel gas. The TIPS shunt in the liver is visualized and appears patent withhepatopedal flow. The portal vein is also patent with hepatopedal flow.There is coarsened echotexture of the hepatic parenchyma without focalfindings noted. No dilatation of intrahepatic bile ducts is noted with thecommon duct measuring 4 mm in diameter. The gallbladder wall is thickenedwithout hyperemia or gallstones seen. The kidneys are not hydronephrotic. No nephrolithiasis is seen. The spleen is borderline normal measuring 13 mm in span. The aorta is not visualized. The inferior vena cava is unremarkable. IMPRESSION: Post routine ultrasound and Doppler ultrasound imaging is obtained. Thetips shunt is patent with hepatopedal flow as is the portal vein. Thehepatic architecture is coarsened without focal findings. No bile ductdilatation is seen. Mild gallbladder wall thickening without hyperemia or cholelithiasis isevident. S/S: RIGHT SIDED ABDOMEN PAIN, TIPS CATHETER CHECK PATENCY . POS - [id number] us Thiago Corley MD G US ABDOMEN Edited Res ult - Final documented in this encounter Visit Diagnoses Diagnosis Abdominal pain, unspecified abdominal location Abdominal pain, unspecified abdominal location documented in this encounter Additional Health Concerns Infection Onset Date Last Indicated Resolved Time CoV-Risk 07/08/2020 07/08/2020 07/18/2020 1:24 AM EST documented as of this encounter Care Teams State Inspector Relationship Specialty Start Date End Date Thiago Corley MD [address] [place] [address] [place] [address] PCP - General Medical Oncology 09/03/17 08/01/20 Thiago Corley MD [address] [place] [address] [place] [address] PCP - General Medical Oncology 08/02/20 documented as of this encounter Additional Source Comments The information contained in this document represents components of the legal health record. It is not the complete legal health record.[facility]
--- OUTSIDE RECORDS SUMMARY | 2025-06-14 12:33 | XMS_ITS | Encounter Summary ---
Author Organization [facility] Address [address] [facility] [address] [place] [address] Phone Care Team Providers Care Automotive Brake Technician Name Role Phone Thiago Corley MD Primary Care Provider [phone]- [phone] Reason for Referral * MRI/CAT Scan - Closed Specialty Diagnoses / Procedures Referred By Contac t Referred To Contact Radiology Diagnoses Other specified abnormal findings of blood chemistry Gallbladder calculus without cholecystitis and no obstruction Procedures MRI Cholangiopancreatography (MRCP) Fátima Hill MD Phone: tel: fax: Referral ID Status Reason Start Date Expiration Date Visits Re quested Visits Authorized [id number] Closed 09/17/2020 09/17/2021 1 1 Encounter Details Date Type Department Care Team (Latest Contact Info) Description 09/17/2020 Transcribe Orders Virtual Department [address] [place] [address] Fátima Hill MD [address] [address] Other specified abnormal findings of blood chemistry (Primary Dx); Gallbladder calculus without cholecystitis and no obstruction Social History Tobacco Use Types Packs/Day Years [...] as of this encounter Results * MRI CHOLANGIOPANCREATOGRAPHY (MRCP) WITHOUT CONTRAST (09/19/2020 10:57 AM EST) Anatomical Region Laterality Modality Pancreas, Biliary Magnetic Reson ance 09/19/2020 11:1 0 AM EST Narrative 09/19/2020 11:41 AM EST MRI CHOLANGIOPANCREATOGRAPHY (MRCP) WITHOUT CONTRAST TECHNIQUE: 3-D MRCP was performed WITHOUT contrast. CLINICAL HISTORY: Right upper quadrant abdominal pain worse after eating. FINDINGS: There is diffuse liver nodularity with moderate prominence of the caudad lobe, consistent with hepatic cirrhosis. The gradient echo out of phase pulse sequence demonstrates diffuse right and left hepatic lobe patchy loss of signal compared to to the in phase pulse sequence, consistent with diffuse hepatic steatosis. Spin echo axial T2-weighted and axial T2-weighted FIESTA fat-suppressed image 12 demonstrated an ill-defined region of increased T2 signal measuring approximately 3.7 cm in greatest diameter in the right lobe of the liver, just posterior to the right hepatic vein and immediately posteromedial to it there is a curvilinear tubular shaped region which may represent shunt catheter tract. These findings are compatible with post TIPS changes. However, right hepatic lobe mass lesion adjacent to the shunt catheter tract cannot be totally excluded on the basis of this examination. Please correlate with prior hepatic imaging examinations. If none are available follow- up gadolinium-enhanced MRI examination may be helpful for further evaluation. Otherwise, there are no focal hepatic signal abnormalities that raise concern for focal hepatic mass lesions. Gallbladder is moderately distended and demonstrates a few small gallstones. No evidence of pericholecystic fluid or soft tissue edema. Cystic duct appears normal. Intrahepatic bile ducts demonstrate no evidence of abnormal dilatation. CBD is a the upper limits of normal measuring 6.8 mm in transverse diameter. Pancreatic duct is normal. Pancreas demonstrates no signal abnormalities or any evidence of mass lesions. No evidence of peripancreatic fluid collections or lymphadenopathy. No evidence of periportal lymphadenopathy. There is tortuosity and dilatation of splenic vein and superior mesenteric vein and portal vein appears prominent. IVC is patent. Hepatic veins appear patent. There is moderate splenomegaly. Adrenal glands and kidneys demonstrate no abnormalities. No evidence of retroperitoneal lymphadenopathy at the imaged levels. CONCLUSION: Cholelithiasis. No evidence of pericholecystic abnormal fluid collections or soft tissue edema. No evidence of abnormal intrahepatic biliary ductal dilatation. No evidence of choledocholithiasis CBD: 6.8 mm in transverse diameter. Normal pancreatic duct. Hepatic cirrhosis and steatosis. Portal venous hypertension. Status post TIPS procedure. Patent IVC, hepatic veins and portal vein and branches. 3.7 cm patchy region of increased T2 signal in right hepatic lobe likely representing postprocedural change status post TIPS, as described above. If clinically indicated follow-up gadolinium-enhanced liver MRI examination should be useful for further evaluation. Procedure Note Kamlesh Davis MD - 09/19/2020 MRI CHOLANGIOPANCREATOGRAPHY (MRCP) WITHOUT CONTRAST TECHNIQUE: 3-D MRCP was performed WITHOUT contrast. CLINICAL HISTORY: Right upper quadrant abdominal pain worse aftereating. FINDINGS: There is diffuse liver nodularity with moderate prominence of the caudadlobe, consistent with hepatic cirrhosis. The gradient echo out of phasepulse sequence demonstrates diffuse right and left hepatic lobe patchyloss of signal compared to to the in phase pulse sequence, consistent withdiffuse hepatic steatosis. Spin echo axial T2-weighted and axial T2-weighted FIESTA fat-suppressedimage 12 demonstrated an ill-defined region of increased T2 signalmeasuring approximately 3.7 cm in greatest diameter in the right lobe ofthe liver, just posterior to the right hepatic vein and immediatelyposteromedial to it there is a curvilinear tubular shaped region which mayrepresent shunt catheter tract. These findings are compatible with postTIPS changes. However, right hepatic lobe mass lesion adjacent to theshunt catheter tract cannot be totally excluded on the basis of thisexamination. Please correlate with prior hepatic imaging examinations. Ifnone are available follow- up gadolinium-enhanced MRI examination may behelpful for further evaluation. Otherwise, there are no focal hepatic signal abnormalities that raiseconcern for focal hepatic mass lesions. Gallbladder is moderately distended and demonstrates a few smallgallstones. No evidence of pericholecystic fluid or soft tissue edema.Cystic duct appears normal. Intrahepatic bile ducts demonstrate no evidence of abnormal dilatation. CBD is a the upper limits of normal measuring 6.8 mm in transversediameter. Pancreatic duct is normal. Pancreas demonstrates no signal abnormalities or any evidence of masslesions. No evidence of peripancreatic fluid collections orlymphadenopathy. No evidence of periportal lymphadenopathy. There is tortuosity and dilatation of splenic vein and superior mesentericvein and portal vein appears prominent. IVC is patent. Hepatic veins appear patent. There is moderate splenomegaly. Adrenal glands and kidneys demonstrate no abnormalities. No evidence of retroperitoneal lymphadenopathy at the imaged levels. CONCLUSION: Cholelithiasis. No evidence of pericholecystic abnormal fluid collectionsor soft tissue edema. No evidence of abnormal intrahepatic biliary ductal dilatation. Noevidence of choledocholithiasis CBD: 6.8 mm in transverse diameter. Normalpancreatic duct. Hepatic cirrhosis and steatosis. Portal venous hypertension. Status post TIPS procedure. Patent IVC, hepatic veins and portal vein andbranches. 3.7 cm patchy region of increased T2 signal in right hepatic lobe likelyrepresenting postprocedural change status post TIPS, as described above.If clinically indicated follow-up gadolinium-enhanced liver MRIexamination should be useful for further evaluation. [facility]- Syed Hill MD IMG MR ABDOMEN Final Re sult documented in this encounter Visit Diagnoses Diagnosis Other specified abnormal findings of blood chemistry- Primary Gallbladder calculus without cholecystitis and no obstruction Calculus of gallbladder without mention of cholecystitis or obstruction Other specified abnormal findings of blood chemistry Gallbladder calculus without cholecystitis and no obstruction Calculus of gallbladder without mention of cholecystitis or obstruction documented in this encounter Care Teams Automotive Brake Technician Relationship Specialty Start Date End Date Thiago Corley MD [address] [place] [address] [place] [address] PCP - General Medical Oncology 08/02/20 documented as of this encounter Additional Source Comments The information contained in this document represents components of the legal health record. It is not the complete legal health record.[facility]
--- OUTSIDE RECORDS SUMMARY | 2025-06-14 12:34 | XMS_ITS | Encounter Summary ---
Author Organization [facility] Address [address] [employer] [facility] [address] [place] [address] Phone Care Team Providers Care Snow Maker Name Role Phone Thiago Corley MD Primary Care Provider [phone]- [phone] Encounter Details Date Type Department Care Team (Late st Contact Info) Description 09/20/2020 Ancillary Orders [facility],Outside Imaging [address] [place], [place] [id number] System, Provider [place] In, [place] [address] Social History Tobacco Use Types Packs/Day Years [...] documented as of this encounter Results * CT Abdomen/Pelvis Outside (No Interpretation) (08/26/2020 12:00 AM EST) Narrative SYSTEMGENERATED, DOCUMENTATION - 09/20/2020 1:25 PM EST This study is for PACS storage only and not for interpretation. us Provider Not In System PhD IMG OUTSIDE IMAGING W /OUT INTERPRETATION Final Result documented in this encounter Visit Diagnoses Not on filedocumented in this encounter Care Teams Snow Maker Relationship Specialty Start Date End Date Thiago Corley MD [address] [place] [address] [place] [id number] PCP - General Medical Oncology 08/02/20 documented as of this encounter Additional Source Comments The information contained in this document represents components of the legal health record. It is not the complete legal health record.[facility]
--- OUTSIDE RECORDS SUMMARY | 2025-06-14 12:34 | XMS_ITS | Encounter Summary ---
Author Organization [facility] Address [address] [facility] [address] [place] [address] Phone Care Team Providers Care Tax Attorney Name Role Phone Thiago Corley MD Primary Care Provider +1- [phone] Encounter Details Date Type Department Care Team (Late st Contact Info) Description 09/20/2020 Ancillary Orders [facility],Outside Imaging [address] [place], [place] [id number] System, Provider Not In, [place] [address] Social History Tobacco Use Types Packs/Day Years [...] as of this encounter Results * MRI Abdomen Outside (No Interpretation) (03/17/2018 12:00 AM EDT) Narrative SYSTEMGENERATED, DOCUMENTATION - 09/20/2020 1:27 PM EST This study is for PACS storage only and not for interpretation. us Provider Not In System PhD IMG OUTSIDE IMAGING W /OUT INTERPRETATION Final Result documented in this encounter Visit Diagnoses Not on filedocumented in this encounter Care Teams Tax Attorney Relationship Specialty Start Date End Date Thiago Corley MD [address] [place] [address] Dr Natalie [place] [id number] PCP - General Medical Oncology 08/02/20 documented as of this encounter Additional Source Comments The information contained in this document represents components of the legal health record. It is not the complete legal health record.[facility]
--- OUTSIDE RECORDS SUMMARY | 2025-06-14 12:34 | XMS_ITS | Clinical Summary ---
Author Organization [facility] Address [address] [place] [address] Care Team Providers Care Fabrication Lead Name Role Phone Unavailable Primary Care Provider Unavailabl e Social History Tobacco Use Types Packs/Day Years Used Date Smoking Tobacco: Never Assessed Sex and Gender Information Value Date Recorded Sex Assigned at Not on file Legal Sex Male 2:36 PM EST Gender Identity Not on file Sexual Orientation Not on file Plan of Treatment Health Maintenance Due Date Last Done Comments DTaP,Tdap,and Td Vaccines (1 - Tdap) 1985 Hepatitis B Vaccines (1 of 3 - 19+ 3-dose series) 1985 Pneumococcal Vaccine: 50+ Ye ars (1 of 1 - PCV) 2016 Zoster Vaccines (1 of 2) 2016 Depression Screening 07/13/2024 COVID-19 Vaccine (1 - 2024-2 6 season) 2025 Influenza Vaccine (#1) 2025 RSV Immunization Adult Patie nts (1 - 1-dose 75+ series) 2041 HIB Vaccines Aged Out No longer eligi ble based on patient's age to complete this topic HPV Vaccines Aged Out No longer eligi ble based on patient's age to complete this topic Hepatitis A Vaccines Aged Out No long er eligible based on patient's age to complete this topic IPV Vaccines Aged Out No longer eligi ble based on patient's age to complete this topic MMR Vaccines Aged Out No longer eligi ble based on patient's age to complete this topic Meningococcal ACWY Vaccine Aged Out N o longer eligible based on patient's age to complete this topic Meningococcal B Vaccine Aged Out No l onger eligible based on patient's age to complete this topic RSV Immunization Patients Un krzysztof 20 months Aged Out No longer eligible b ased on patient's age to complete this topic Varicella Vaccines Aged Out No longer eligible based on patient's age to complete this topic
--- OUTSIDE RECORDS SUMMARY | 2025-06-14 12:34 | XMS_ITS | Encounter Summary ---
Author Organization [facility] Address [address] [employer] [facility] [address] [place] [address] Phone Care Team Providers Care Shampoo Assistant Name Role Phone Thiago Corley MD Primary Care Provider +1- [phone] Encounter Details Date Type Department Care Team (Late st Contact Info) Description 09/17/2020 Procedure Pass [facility], [address] [address] Social History Tobacco Use Types Packs/Day Years [...] on file documented as of this encounter Last Filed Vital Signs Vital Sign Reading Time Taken Comments Blood Pressure - - Pulse - - Temperature - - Respiratory Rate - - Oxygen Saturation - - Inhaled Oxygen Concentration - - Weight 86.2 kg (190 lb) 09/18/2020 3:57 PM EST Height 182.9 cm (6') 09/18/2020 3:57 PM EST Body Mass Index 25.77 09/18/2020 3:57 PM EST documented in this encounter Plan of Treatment Not on file documented as of this encounter Visit Diagnoses Not on filedocumented in this encounter Care Teams Shampoo Assistant Relationship Specialty Start Date End Date Thiago Corley MD [address] [place] [address] [place] [id number] PCP - General Medical Oncology 1/21/21 documented as of this encounter Additional Source Comments The information contained in this document represents components of the legal health record. It is not the complete legal health record.[facility]
--- OUTSIDE RECORDS SUMMARY | 2025-06-14 12:34 | XMS_ITS | Clinical Summary ---
Author Organization [facility] Address [address] [employer] [facility] [address] [place] [address] Phone Care Team Providers Care User Acceptance Tester Name Role Phone Thiago Corley MD Primary Care Provider +1- [phone] Allergies No known active allergies Medications amoxicillin (AMOXIL) 500 MG capsule Take 1 capsule (500 mg total) by mouth 3 (three) times a day. 30 capsule 05/06/2021 Active Active Problems No known active problems Immunizations Immunization Administration Dates Next Due COVID-19 (Pre-05/04) Pfizer Vaccine, mRNA, PF ,07/03/2020 Influenza Quadrivalent Preservative Free IM 07/2020 Social History Tobacco Use Types Packs/Day Years Used Date Smoking Tobacco: Never Smokeless Tobacco: Never Alcohol Use Standard Drinks/Week Comments Yes 0 (1 standard drink = 0.6 oz pur e alcohol) Education Answer Date Recorded Are you interested in more education? Not on teresa e 11/07/2022 Are you concerned about learning? Not on file 11/07/2022 No 11/07/2022 No 11/07/2022 Digital Access Answer Date Recorded No 12/08/2022 No 12/08/2022 No 12/08/2022 Reliable internet access at home? Not on file 12/08/2022 Device with a working camera? Not on file Sex and Gender Information Value Date Recorded Sex Assigned at Not on file Legal Sex Male 11:13 AM EDT Gender Identity Not on file Sexual Orientation Not on file Last Filed Vital Signs Vital Sign Reading Time Taken Comments Blood Pressure 142/90 05/06/2021 10:19 AM EDT Pulse 69 05/06/2021 10:19 AM EDT Temperature 36.6 C (97.9 F) 05/06/2021 10:19 AM EDT Respiratory Rate 18 05/06/2021 10:19 AM EDT Oxygen Saturation 99% 05/06/2021 10:19 AM EDT Inhaled Oxygen Concentration - - Weight 90.7 kg (200 lb) 06/11/2021 7:57 AM EST Height 182.9 cm (6') 06/11/2021 7:57 AM EST Body Mass Index 27.12 06/11/2021 7:57 AM EST Plan of Treatment Health Maintenance Due Date Last Done Comments Adult Td,Tdap Booster 1966 DEPRESSION SCREENING 1978 HIV ONE-TIME SCREENING (18-65 YEARS) 1984 COLOGUARD 11/23/2011 COLONOSCOPY 11/23/2011 COLORECTAL CANCER SCREENING 11/23/2011 FIT TEST 11/23/2011 FOBT 11/23/2011 SIGMOIDOSCOPY 11/23/2011 VIRTUAL COLONOSCOPY 11/23/2011 PNEUMOCOCCAL VACCINES (50+ years) (1 of 1 - PCV) 2016 ZOSTER VACCINES (1 of 2) 2016 LIPID PANEL 05/09/2024 05/09/2019, 08/05/2018 INFLUENZA VACCINE (#1) 2025 , 04/18/2019, 04/28/2018, Additional history exists COVID-19 VACCINE (3 - 2024- season) 2025 07/24/2020, 07/03/2020 RSV VACCINE (1 - 1-dose 75+ series) 2041 HEPATITIS C SCREENING Completed 08/05/2018, 019 SMOKING STATUS SCREENING (Once After 26 Yrs) Completed 05/06/2021 HEPATITIS A VACCINES Aged Out No long er eligible based on patient's age to complete this topic HIB VACCINES Aged Out No longer eligi ble based on patient's age to complete this topic MENINGOCOCCAL VACCINES (ACWY) Aged Out No longer eligible based on patient's age to complete this topic MENINGOCOCCAL VACCINES (B) Aged Out N o longer eligible based on patient's age to complete this topic Medical Devices Not on file Procedures Procedure Name Priority Date/Time Associated Diagnosis Comments LIPID PANEL Routine 05/09/2019 7:31 AM EDT Hyperlipidemia, unspecified hyperlipidemia type Thrombocytopenia, unspecified HEPATITIS C ANTIBODY, QUALITATIVE Routine 08/05/2018 7:36 AM EST Hyperlipidemia, unspecified hyperlipidemia type Routine medical exam Hypersplenism Impotence Biliary cirrhosis from Last 3 Months or Most Recently Relevant to Health Maintenance Results * (ABNORMAL) Lipid panel (05/09/2019 7:31 AM EDT) HDL 71 mg/dL [facility] Comment: Interpretation <40 mg/dL: Low HDL cholesterol (major risk factor for CHD) Greater than or equal to 60 mg/dL: High HDL cholesterol ( negative risk factor for CHD) HDL - cholesterol is affected by a number of factors, e.g. smoking, excerise, hormones, sex and age. CHOLESTEROL 167 0 - 240 mg/dL [facility] TRIGLYCERIDES 49 30 - 160 mg/dL [facility] LDL 86 50 - 129 mg/dL [facility] Comment: LDL levels in terms of risk for coronary heart disease: <100 mg/dL: Optimal 100-129 mg/dL: Near or above optimal 130-159 mg/dL: Borderline high 160-189 mg/dL: High >190 mg/dL: Very High CARDIAC RISK RATIO 2.4(L) 3.4 - 5.0 C [facility] Blood 05/09/2019 7:31 AM EDT 05/09/2019 7:33 AM EDT us Thiago Corley MD LAB BLOOD BKR ORDERABLES F inal Result [facility] [address] [place] [address] * Hepatitis C antibody, qualitative (08/05/2018 7:36 AM EST) HCV Negative Negative [facility] Comment: This is a screening test and should be confirmed with molecular testing Blood 08/05/2018 7:36 AM EST 08/05/2018 7:50 AM EST us Thiago Corley MD LAB BLOOD BKR ORDERABLES F inal Result [address] [address] from Last 3 Months or Most Recently Relevant to Health Maintenance Insurance EMPLOYEES FAMILY [employer]YEES FAMILY [employer]PL[employer]YEES FAMILY [employer]OYEES FAMILY EMPL[employer]YEES FAMILY EMPLOYEES FAMILY [employer] [employer] [employer]YE[employer] FAMILY EMPLOYEES FAMILY [employer] EM[employer]OYEES FAMILY Care Teams User Acceptance Tester Relationship Specialty Start Date End Date Thiago Corley MD [address] [place] [address] [place] [address] PCP - General Medical Oncology 08/02/20 Additional Source Comments The information contained in this document represents components of the legal health record. It is not the complete legal health record.[facility]
[2025-06-14 13:43] LABS: Hematocrit 43.3 % (42.0-52.0); Hemoglobin 15.3 g/dl (14.0-18.0); Imm Gran Abs Auto 0.01 X10*3/uL (0.00-0.03); Imm Gran Pct Auto 0.3 % (0.0-0.4); Lymphocytes Absolute Auto 0.7 X10*3/uL (1.2-4.9); Mean Corpuscular HGB Conc 35.3 g/dl (31.0-36.0); Mean Corpuscular Hemoglobin 33.2 pg (27.0-33.0); Mean Corpuscular Volume 93.9 fL (80.0-98.0); NRBC Abs Auto 0.000 X10*3/uL (0.0-0.012); NRBC Pct Auto 0.0 /100WBC (0.0-0.2); Red Blood Count 4.61 X10*6/uL (4.60-5.80); White Blood Count 3.9 X10*3/uL (4.8-10.8)
[2025-06-14 13:45] LABS: MANUAL DIFF FLAG SCAN; Platelet Count 71 X10*3/uL (160-400)
[2025-06-14 14:47] LABS: Alanine Aminotransferase 69 U/L (0-40); Albumin Level 4.0 g/dL (3.5-5.0); Alkaline Phosphatase 137 U/L (39-117); Anion Gap 14 (12-20); Aspartate Amino Transferase 118 U/L (5-37); Blood Urea Nitrogen 12 mg/dL (9-16); Calcium 9.0 mg/dL (8.4-10.2); Carbon Dioxide 25 mmol/L (22-29); Chloride 106 mmol/L (96-108); Cholesterol 157 mg/dL (<200); Estimated Glomerular Filt Rate > 60; HDL Cholesterol 41 mg/dL (>40); Potassium 4.4 mmol/L (3.3-5.1); Sodium 141 mmol/L (135-145); Total Protein 6.8 g/dL (6.5-8.0); Triglycerides 82 mg/dL (<150)
[2025-06-14 15:11] LABS: Prealbumin 9.0 mg/dL (20-40)
[2025-06-14 21:21] LABS: Prostate Specific Antigen 0.17 ng/mL (<0.05-4.0)
== END 2025-06-14 10:48 | disposition home or self-care (01) ==
LOC: HO.10HDL 10:47
PROVIDERS: Visit Provider Internal Medicine Medical Oncology
DX: Z12.5 Encounter for screening for malignant neoplasm of prostate (principal); R13.10 Dysphagia, unspecified; D69.6 Thrombocytopenia, unspecified; K74.60 Unspecified cirrhosis of liver; R63.4 Abnormal weight loss; Z13.6 Encounter for screening for cardiovascular disorders
CPT/HCPCS: 36415; 80053; 80061; 84134; 84153; 85025